=== PATIENT | female | born 1985 | race Caucasian/White ===

== ENCOUNTER 2018-02-26 10:12 | Emergency (ER) | payer OTHER ==
[2018-02-26 10:24] VITALS: RESP 18
--- NOTE | 2018-02-26 10:45 | ED ---
General Adult HPI - General Chief complaint: Recheck/Abnormal Lab/Rx Stated complaint: kidney problem Time Seen by Provider: 02/26/18 10:25 Source: patient, RN notes reviewed, old records reviewed Mode of arrival: ambulatory Limitations: no limitations - History of Present Illness Initial comments: 32-year-old female presented for evaluation of bilateral lower extremity and bilateral hand swelling. This has been progressive over the past 4 days. Patient is also noted decreased urination. She states she is urinating approximately once every 1-2 days. She states this is very dark in color. She does have history of kidney stones requiring stenting. She is currently not having any flank pain. No dysuria. No fever or chills. Patient does currently have a dental infection that is being evaluated by her dentist. No chest pain. No dyspnea. No fever or chills. - Related Data Home Medications Medication Instructions Recorded Confirmed Amoxicillin 500 mg PO Q8H 02/26/18 02/26/18 Ibuprofen [Motrin] 800 mg PO TID PRN 02/26/18 02/26/18 Allergies Allergy/AdvReac Type Severity Reaction Status Date / Time acetaminophen Allergy Anaphylaxis Verified 02/26/18 10:30 Review of Systems ROS Statement: Those systems with pertinent positive or pertinent negative responses have been documented in the HPI. ROS Other: All systems not noted in ROS Statement are negative. Past Medical History Additional Past Medical History / Comment(s): Kidney stones, right kidney failure History of Any Multi-Drug Resistant Organisms: None Reported Past Surgical History: Section, Orthopedic Surgery Past Psychological History: No Psychological Hx Reported Smoking Status: Never smoker Past Alcohol Use History: None Reported Past Drug Use History: None Reported General Exam Limitations: no limitations General appearance: alert, in no apparent distress Head exam: Present: atraumatic, normocephalic Eye exam: Present: normal appearance, PERRL ENT exam: Present: normal exam Neck exam: Present: normal inspection. Absent: tenderness, meningismus Respiratory exam: Present: normal lung sounds bilaterally. Absent: respiratory distress, wheezes, rales Cardiovascular Exam: Present: regular rate, normal rhythm GI/Abdominal exam: Present: soft. Absent: distended, tenderness Extremities exam: Present: pedal edema (2+ pitting edema) Neurological exam: Present: alert, oriented X3, CN II-XII intact. Absent: motor sensory deficit Psychiatric exam: Present: normal affect, normal mood Skin exam: Present: warm, dry, intact. Absent: cyanosis, diaphoretic Course Vital Signs 02/26/18 10:21 Temperature 98.4 F Pulse Rate 103 H Respiratory 18 Rate Blood Pressure 129/83 O2 Sat by Pulse 98 Oximetry Medical Decision Making - Medical Decision Making 32-year-old female presenting with generalized swelling and decreased urine output. On exam patient does have 1+ pitting edema in her bilateral lower extremities. Lungs are clear. Workup includes a chest x-ray shows clear lung graves, no edema, no cardiomegaly. Ultrasound of the kidneys does show a poorly differentiated cortical medullary junction consistent with medical renal disease. There is no hydro-, no nephrolithiasis. Urinalysis is clear, no protein, 2 RBCs however there is 15 squamous cells, consistent with contamination. Creatinine is normal at 0.85. CBC and CMP are otherwise unremarkable. Patient does have remote history of heroin abuse. She states she has been clean for approximately 4 years. She is instructed on maintaining oral hydration, healthy diet and healthy lifestyle. She will be given outpatient primary care physician as well as nephrology follow-up. - Lab Data Result diagrams: 02/26/18 10:48 02/26/18 10:48 Lab Results 02/26/18 02/26/18 02/26/18 Range/Units 10:48 10:48 10:48 WBC 7.3 (3.8-10.6) k/uL RBC 4.35 (3.80-5.40) m/uL Hgb 12.4 (11.4-16.0) gm/dL Hct 37.3 (34.0-46.0) % MCV 85.8 (80.0-100.0) fL MCH 28.6 (25.0-35.0) pg MCHC 33.3 (31.0-37.0) g/dL RDW 13.3 (11.5-15.5) % Plt Count 243 (150-450) k/uL Neutrophils % 59 % Lymphocytes % 24 % Monocytes % 8 % Eosinophils % 7 % Basophils % 1 % Neutrophils # 4.3 (1.3-7.7) k/uL Lymphocytes # 1.7 (1.0-4.8) k/uL Monocytes # 0.6 (0-1.0) k/uL Eosinophils # 0.5 (0-0.7) k/uL Basophils # 0.1 (0-0.2) k/uL Sodium 142 (137-145) mmol/L Potassium 4.1 (3.5-5.1) mmol/L Chloride 101 (98-107) mmol/L Carbon Dioxide 28 (22-30) mmol/L Anion Gap 13 mmol/L BUN 13 (7-17) mg/dL Creatinine 0.85 (0.52-1.04) mg/dL Est GFR (CKD-EPI)AfAm >90 (>60 ml/min/1.73 sqM) Est GFR (CKD-EPI)NonAf >90 (>60 ml/min/1.73 sqM) Glucose 98 (74-99) mg/dL Calcium 9.3 (8.4-10.2) mg/dL Total Bilirubin 0.2 (0.2-1.3) mg/dL AST 23 (14-36) U/L ALT 34 (9-52) U/L Alkaline Phosphatase 104 (38-126) U/L NT-Pro-B Natriuret Pep 43 pg/mL Total Protein 7.2 (6.3-8.2) g/dL Albumin 4.1 (3.5-5.0) g/dL Urine Color Urine Appearance (Clear) Urine pH (5.0-8.0) Ur Specific [place] (1.001-1.035) Urine Protein (Negative) Urine Glucose (UA) (Negative) Urine Ketones (Negative) Urine Blood (Negative) Urine Nitrite (Negative) Urine Bilirubin (Negative) Urine Urobilinogen (<2.0) mg/dL Ur Leukocyte Esterase (Negative) Urine RBC (0-5) /hpf Urine WBC (0-5) /hpf Ur Squamous Epith Cells (0-4) /hpf Urine Bacteria (None) /hpf Urine Mucus (None) /hpf Urine HCG, Qual (Not Detectd) 02/26/18 02/26/18 Range/Units 11:13 11:13 WBC (3.8-10.6) k/uL RBC (3.80-5.40) m/uL Hgb (11.4-16.0) gm/dL Hct (34.0-46.0) % MCV (80.0-100.0) fL MCH (25.0-35.0) pg MCHC (31.0-37.0) g/dL RDW (11.5-15.5) % Plt Count (150-450) k/uL Neutrophils % % Lymphocytes % % Monocytes % % Eosinophils % % Basophils % % Neutrophils # (1.3-7.7) k/uL Lymphocytes # (1.0-4.8) k/uL Monocytes # (0-1.0) k/uL Eosinophils # (0-0.7) k/uL Basophils # (0-0.2) k/uL Sodium (137-145) mmol/L Potassium (3.5-5.1) mmol/L Chloride (98-107) mmol/L Carbon Dioxide (22-30) mmol/L Anion Gap mmol/L BUN (7-17) mg/dL Creatinine (0.52-1.04) mg/dL Est GFR (CKD-EPI)AfAm (>60 ml/min/1.73 sqM) Est GFR (CKD-EPI)NonAf (>60 ml/min/1.73 sqM) Glucose (74-99) mg/dL Calcium (8.4-10.2) mg/dL Total Bilirubin (0.2-1.3) mg/dL AST (14-36) U/L ALT (9-52) U/L Alkaline Phosphatase (38-126) U/L NT-Pro-B Natriuret Pep pg/mL Total Protein (6.3-8.2) g/dL Albumin (3.5-5.0) g/dL Urine Color Yellow Urine Appearance Cloudy H (Clear) Urine pH 5.5 (5.0-8.0) Ur Specific [place] 1.022 (1.001-1.035) Urine Protein Negative (Negative) Urine Glucose (UA) Negative (Negative) Urine Ketones Negative (Negative) Urine Blood Negative (Negative) Urine Nitrite Negative (Negative) Urine Bilirubin Negative (Negative) Urine Urobilinogen 2.0 (<2.0) mg/dL Ur Leukocyte Esterase Trace H (Negative) Urine RBC 2 (0-5) /hpf Urine WBC 3 (0-5) /hpf Ur Squamous Epith Cells 15 H (0-4) /hpf Urine Bacteria Rare H (None) /hpf Urine Mucus Few H (None) /hpf Urine HCG, Qual Not Detected (Not Detectd) Disposition Clinical Impression: Edema, Kidney disease Disposition: HOME SELF-CARE Condition: Fair Instructions: Leg Edema (ED), Chronic Kidney Disease (ED) Is patient prescribed a controlled substance at d/c from ED?: No Referrals: None,Stated [Primary Care Provider] - 1-2 days Alfred Lopez MD [REFERRING] - 1-2 days Osiris Scherer MD [STAFF PHYSICIAN] - 1-2 days Time of Disposition: 12:36
[2018-02-26 11:02] LABS: Basophils # (A) 0.1 k/uL (0-0.2); Basophils % (A) 1 %; Eosinophils # (A) 0.5 k/uL (0-0.7); Eosinophils % (A) 7 %; HCT 37.3 % (34.0-46.0); HGB 12.4 gm/dL (11.4-16.0); Lymphocytes # (A) 1.7 k/uL (1.0-4.8); Lymphocytes % (A) 24 %; MCH 28.6 pg (25.0-35.0); MCHC 33.3 g/dL (31.0-37.0); MCV 85.8 fL (80.0-100.0); Mean Platelet Volume 7.5; Monocytes # (A) 0.6 k/uL (0-1.0); Monocytes % (A) 8 %; Neutrophils # (A) 4.3 k/uL (1.3-7.7); Neutrophils % (A) 59 %; Platelet Count 243 k/uL (150-450); RBC 4.35 m/uL (3.80-5.40); RDW 13.3 % (11.5-15.5); WBC 7.3 k/uL (3.8-10.6)
[2018-02-26 11:12] LABS: ALT 34 U/L (9-52); AST 23 U/L (14-36); Albumin 4.1 g/dL (3.5-5.0); Alkaline Phosphatase 104 U/L (38-126); Anion Gap 13 mmol/L; Blood Urea Nitrogen 13 mg/dL (7-17); Calcium 9.3 mg/dL (8.4-10.2); Carbon Dioxide 28 mmol/L (22-30); Chloride 101 mmol/L (98-107); Glucose 98 mg/dL (74-99); Potassium 4.1 mmol/L (3.5-5.1); Sodium 142 mmol/L (137-145); Total Bilirubin 0.2 mg/dL (0.2-1.3); Total Protein 7.2 g/dL (6.3-8.2)
[2018-02-26 11:27] LABS: Appearance,Urine Cloudy (Clear); Bacteria,Urine Rare /hpf; Bilirubin,Urine Negative (Negative); Blood,Urine Negative (Negative); Color,Urine Yellow; Glucose,Urine (UA) Negative (Negative); Ketones,Urine Negative (Negative); Leukocyte Esterase,Urine Trace (Negative); Mucus,Urine Few /hpf; Nitrite,Urine Negative (Negative); PH, Urine 5.5 (5.0-8.0); Protein,Urine Negative (Negative); RBC,Urine 2 /hpf (0-5); Specific Gravity,Urine 1.022 (1.001-1.035); Squamous Epithelial Cell,Urine 15 /hpf (0-4); WBC,Urine 3 /hpf (0-5)
--- NOTE | 2018-02-26 11:56 | US ---
EXAMINATION TYPE: US renals and bladder DATE OF EXAM: 02/26/2018 COMPARISON: NONE CLINICAL HISTORY: Pain. Had not urinated for about three days, h/o of right renal failure at 20. EXAM MEASUREMENTS: Right Kidney: 10.6 x 5.4 x 6.3 cm Left Kidney: 10.8 x 5.3 x 6.1 cm Right Kidney: No hydronephrosis or masses seen. No nephrolithiasis. Slight cortical renal thinning an d poor corticomedullary differentiation. Left Kidney: No hydronephrosis or masses seen . No nephrolithiasis. Slight cortical renal thinning an d poor corticomedullary differentiation. Bladder: slightly distended, patient just gave urine sample Bilateral Jets seen: no There is no evidence for hydronephrosis at this point in time. No nephrolithiasis is seen. No bernice s are identified. The urinary bladder is anechoic. IMPRESSION: Poor corticomedullary differentiation and mild cortical renal thinning suggesting underlying medical renal disease compatible the patient's history. No hydronephrosis or nephrolithiasis.
--- NOTE | 2018-02-26 11:57 | XR ---
EXAMINATION TYPE: XR chest 2V DATE OF EXAM: 02/26/2018 COMPARISON: NONE HISTORY: Lower extremity swelling. Shortness of breath. TECHNIQUE: Frontal and lateral views of the chest are obtained. FINDINGS: There is no focal air space opacity, pleural effusion, or pneumothorax seen. The cardiac silhouette size is within normal limits. The osseous structures are intact. IMPRESSION: No acute cardiopulmonary process.
[2018-02-26 12:51] VITALS: BP 108/57; PULSE 68; TEMP 98.2
== END 2018-02-26 12:50 | disposition home or self-care (01) ==
LOC: EC 10:12
DX: N28.9 Disorder of kidney and ureter, unspecified (principal); R60.0 Localized edema; R82.99 Other abnormal findings in urine; K04.7 Periapical abscess without sinus; R39.12 Poor urinary stream; Z88.5 Allergy status to narcotic agent
CPT/HCPCS: 36415; 71046; 76770; 80053; 81001; 81025; 83880; 85025; 99284

== ENCOUNTER → 2018-06-03 | Outpatient (CLI) | payer OTHER ==
[2018-06-03 13:36] LABS: Appearance,Urine Clear (Clear); Bilirubin,Urine Negative (Negative); Blood,Urine Small (Negative); Color,Urine Yellow; Glucose,Urine (UA) Negative (Negative); Ketones,Urine Negative (Negative); Leukocyte Esterase,Urine Trace (Negative); Mucus,Urine Rare /hpf; Nitrite,Urine Negative (Negative); PH, Urine 6.5 (5.0-8.0); Protein,Urine Negative (Negative); RBC,Urine <1 /hpf (0-5); Specific Gravity,Urine 1.013 (1.001-1.035); Squamous Epithelial Cell,Urine 3 /hpf (0-4); Urobilinogen,Urine <2.0 mg/dL (<2.0); WBC,Urine 2 /hpf (0-5)
[2018-06-03 13:45] LABS: Anion Gap 8 mmol/L; Blood Urea Nitrogen 11 mg/dL (7-17); Calcium 9.6 mg/dL (8.4-10.2); Carbon Dioxide 28 mmol/L (22-30); Chloride 104 mmol/L (98-107); Glucose 94 mg/dL (74-99); Potassium 4.7 mmol/L (3.5-5.1); Sodium 140 mmol/L (137-145)
== END | disposition home or self-care (01) ==
LOC: LABWHC1 12:08
PROVIDERS: ATTEND Internal Medicine
DX: N20.0 Calculus of kidney (principal)
CPT/HCPCS: 36415; 80048; 81001; 87086

== ENCOUNTER 2020-08-25 20:30 | Emergency (ER) | payer OTHER ==
[2020-08-25 20:37] VITALS: RESP 18
[2020-08-25] MEDS ORDERED: KETOROLAC 15 MG/ML 1 ML VIAL IVP STA (21:04)
[2020-08-25] MEDS ORDERED: SODIUM CHLORIDE 0.9% 1,000 ML IV STA (21:04)
--- NOTE | 2020-08-25 21:44 | ED ---
Female Urogenital HPI - General Source: patient Mode of arrival: ambulatory Limitations: no limitations - History of Present Illness Last Menstrual Period: 07/19/20 <Selma Beauchamp - Last Filed: 08/25/20 21:40> <Kamla Mcgee - Last Filed: 08/25/20 23:55> - General Chief complaint: Urogenital Stated complaint: Abd Pain Time Seen by Provider: 08/25/20 20:45 - History of Present Illness Initial comments: Patient is a 35-year-old female presenting to the emergency department with complaints of right-sided flank pain has been increasing over the past 4-5 days. Patient states there is some mild radiation into the right side of the abdomen and some also into the left side. Patient does have some occasional nausea. She states she has had kidney stones in the past and this feels similar. She denies any hematuria, dysuria. She denies any vomiting, diarrhea, chest pain or shortness of breath. She denies any fever or chills. She states she has seen Dr. Silveira in the past. Patient states she did try some Motrin earlier today without improvement in her symptoms. Patient has no further complaints at this time. Upon arrival to the ER, her vital signs are stable. (Selma Beauchamp) - Related Data Home Medications Medication Instructions Recorded Confirmed Dextroamphetamine/Amphetamine 20 mg PO BID PRN 08/25/20 08/25/20 [Adderall] Methadone HCl [Methadone Intensol] 150 mg PO DAILY 08/25/20 08/25/20 Allergies Allergy/AdvReac Type Severity Reaction Status Date / Time acetaminophen Allergy Anaphylaxis Verified 08/25/20 21:08 Review of Systems ROS Other: All systems not noted in ROS Statement are negative. <Selma Beauchamp - Last Filed: 08/25/20 21:40> ROS Other: All systems not noted in ROS Statement are negative. <Kamla Mcgee - Last Filed: 08/25/20 23:55> ROS Statement: Those systems with pertinent positive or pertinent negative responses have been documented in the HPI. Past Medical History Additional Past Medical History / Comment(s): Kidney stones, right kidney failure History of Any Multi-Drug Resistant Organisms: None Reported Past Surgical History: Section, Orthopedic Surgery Past Psychological History: No Psychological Hx Reported Smoking Status: Never smoker Past Alcohol Use History: None Reported Past Drug Use History: None Reported <Selma Beauchamp - Last Filed: 08/25/20 21:40> General Exam Limitations: no limitations <Selma Beauchamp - Last Filed: 08/25/20 21:40> - General Exam Comments Initial Comments: GENERAL: Patient is well-developed and well-nourished. Patient is nontoxic and in no acute distress. HEAD: Atraumatic, normocephalic. EYES: Pupils equal round and reactive to light, extraocular movements intact, sclera anicteric, conjunctiva are normal. Eyelids were unremarkable. ENT: TMs normal, nares patent, oropharynx clear without exudates. Moist mucous membranes. NECK: Normal range of motion, supple without lymphadenopathy or JVD. LUNGS: Unlabored respirations. Breath sounds clear to auscultation bilaterally and equal. No wheezes rales or rhonchi. HEART: Regular rate and rhythm without murmurs, rubs or gallops. ABDOMEN: Soft, nontender, normoactive bowel sounds. No guarding, no rebound. No masses appreciated. : Deferred MUSCULOSKELETAL: Normal extremities with adequate strength and normal range of motion, no pitting or edema. No clubbing or cyanosis. NEUROLOGICAL: Patient is alert and oriented x 3. Motor and sensory are also intact. Cranial nerves II through XII grossly intact. Symmetrical smile. Normal speech, normal gait. PSYCH: Normal mood, normal affect. SKIN: Warm, Dry, normal turgor, no rashes or lesions noted. (Selma Beauchamp) Course <Kamla Mcgee - Last Filed: 08/25/20 23:55> Vital Signs 08/25/20 08/25/20 20:33 23:32 Temperature 98.9 F 98 F Pulse Rate 66 62 Respiratory 18 18 Rate Blood Pressure 145/79 129/77 O2 Sat by Pulse 98 98 Oximetry - Reevaluation(s) Reevaluation #1: received patient as sign out pending CT ordered to r/o stone as cause of flank pain. 08/25/20 23:00 (Kamla Mcgee) Reevaluation #2: Pt presenting for 5 days of low back pain, no fevers, no nausea, vomiting. hx of stones. cr/bun WNL. patient does not appear in distress. pt has no overt signs of infection. no large stones concerning for cause of pain on CT abdomen/pelvis. pt states it coudl be stress from her daughter recently being diagnosed with cancer. pt denies chest pain, SOB, leg pain, back injury/trauma or falls. states pain better. at this time after examination i feel ptatient may have had recently passed stone vs low back strain. pt will be dischargd with instruction to take ibuprofen as needed for pain and return for worsening symptoms/fevers. Dr Lopez agreeable to care plan. 08/25/20 23:53 (Kamla Mcgee) Medical Decision Making - Lab Data Result diagrams: 08/25/20 21:16 08/25/20 21:16 <Kamla Mcgee - Last Filed: 08/25/20 23:55> - Lab Data Lab Results 08/25/20 08/25/20 08/25/20 Range/Units 21:16 21:16 21:20 WBC 8.0 (3.8-10.6) k/uL RBC 4.40 (3.80-5.40) m/uL Hgb 12.9 (11.4-16.0) gm/dL Hct 37.4 (34.0-46.0) % MCV 85.1 (80.0-100.0) fL MCH 29.3 (25.0-35.0) pg MCHC 34.4 (31.0-37.0) g/dL RDW 13.3 (11.5-15.5) % Plt Count 258 (150-450) k/uL MPV 8.0 Neutrophils % 64 % Lymphocytes % 22 % Monocytes % 7 % Eosinophils % 5 % Basophils % 1 % Neutrophils # 5.1 (1.3-7.7) k/uL Lymphocytes # 1.8 (1.0-4.8) k/uL Monocytes # 0.5 (0-1.0) k/uL Eosinophils # 0.4 (0-0.7) k/uL Basophils # 0.1 (0-0.2) k/uL Sodium 137 (137-145) mmol/L Potassium 4.3 (3.5-5.1) mmol/L Chloride 105 (98-107) mmol/L Carbon Dioxide 26 (22-30) mmol/L Anion Gap 6 mmol/L BUN 12 (7-17) mg/dL Creatinine 0.83 (0.52-1.04) mg/dL Est GFR (CKD-EPI)AfAm >90 (>60 ml/min/1.73 sqM) Est GFR (CKD-EPI)NonAf >90 (>60 ml/min/1.73 sqM) Glucose 96 (74-99) mg/dL Calcium 9.9 (8.4-10.2) mg/dL Total Bilirubin 0.3 (0.2-1.3) mg/dL AST 32 (14-36) U/L ALT 31 (4-34) U/L Alkaline Phosphatase 113 (38-126) U/L Total Protein 7.8 (6.3-8.2) g/dL Albumin 4.3 (3.5-5.0) g/dL Urine Color Urine Appearance (Clear) Urine pH (5.0-8.0) Ur Specific [place] (1.001-1.035) Urine Protein (Negative) Urine Glucose (UA) (Negative) Urine Ketones (Negative) Urine Blood (Negative) Urine Nitrite (Negative) Urine Bilirubin (Negative) Urine Urobilinogen (<2.0) mg/dL Ur Leukocyte Esterase (Negative) Urine RBC (0-5) /hpf Urine WBC (0-5) /hpf Ur Squamous Epith Cells (0-4) /hpf Urine Bacteria (None) /hpf Urine Mucus (None) /hpf Urine HCG, Qual Not Detected (Not Detectd) 08/25/20 Range/Units 21:21 WBC (3.8-10.6) k/uL RBC (3.80-5.40) m/uL Hgb (11.4-16.0) gm/dL Hct (34.0-46.0) % MCV (80.0-100.0) fL MCH (25.0-35.0) pg MCHC (31.0-37.0) g/dL RDW (11.5-15.5) % Plt Count (150-450) k/uL MPV Neutrophils % % Lymphocytes % % Monocytes % % Eosinophils % % Basophils % % Neutrophils # (1.3-7.7) k/uL Lymphocytes # (1.0-4.8) k/uL Monocytes # (0-1.0) k/uL Eosinophils # (0-0.7) k/uL Basophils # (0-0.2) k/uL Sodium (137-145) mmol/L Potassium (3.5-5.1) mmol/L Chloride (98-107) mmol/L Carbon Dioxide (22-30) mmol/L Anion Gap mmol/L BUN (7-17) mg/dL Creatinine (0.52-1.04) mg/dL Est GFR (CKD-EPI)AfAm (>60 ml/min/1.73 sqM) Est GFR (CKD-EPI)NonAf (>60 ml/min/1.73 sqM) Glucose (74-99) mg/dL Calcium (8.4-10.2) mg/dL Total Bilirubin (0.2-1.3) mg/dL AST (14-36) U/L ALT (4-34) U/L Alkaline Phosphatase (38-126) U/L Total Protein (6.3-8.2) g/dL Albumin (3.5-5.0) g/dL Urine Color Yellow Urine Appearance Cloudy H (Clear) Urine pH 6.0 (5.0-8.0) Ur Specific [place] 1.011 (1.001-1.035) Urine Protein Negative (Negative) Urine Glucose (UA) Negative (Negative) Urine Ketones Negative (Negative) Urine Blood Negative (Negative) Urine Nitrite Negative (Negative) Urine Bilirubin Negative (Negative) Urine Urobilinogen <2.0 (<2.0) mg/dL Ur Leukocyte Esterase Trace H (Negative) Urine RBC <1 (0-5) /hpf Urine WBC 3 (0-5) /hpf Ur Squamous Epith Cells 10 H (0-4) /hpf Urine Bacteria Many H (None) /hpf Urine Mucus Occasional H (None) /hpf Urine HCG, Qual (Not Detectd) Disposition <Selma Beauchamp L - Last Filed: 08/25/20 21:40> Is patient prescribed a controlled substance at d/c from ED?: No <Kamla Mcgee - Last Filed: 08/25/20 23:55> Clinical Impression: Flank pain Disposition: HOME SELF-CARE Condition: Good Instructions (If sedation given, give patient instructions): Abdominal Pain (ED) Additional Instructions: Please use medication as discussed. Please follow-up with family doctor in the next 2 days. Please return to emergency room if the symptoms increase or worsen or for any other concerns. Referrals: Santiago Sinclair, [Primary Care Provider] - 1-2 days
[2020-08-25 21:55] LABS: Basophils # (A) 0.1 k/uL (0-0.2); Basophils % (A) 1 %; Eosinophils # (A) 0.4 k/uL (0-0.7); Eosinophils % (A) 5 %; HCT 37.4 % (34.0-46.0); HGB 12.9 gm/dL (11.4-16.0); Lymphocytes # (A) 1.8 k/uL (1.0-4.8); Lymphocytes % (A) 22 %; MCH 29.3 pg (25.0-35.0); MCHC 34.4 g/dL (31.0-37.0); MCV 85.1 fL (80.0-100.0); Monocytes # (A) 0.5 k/uL (0-1.0); Monocytes % (A) 7 %; Neutrophils # (A) 5.1 k/uL (1.3-7.7); Neutrophils % (A) 64 %; Platelet Count 258 k/uL (150-450); RDW 13.3 % (11.5-15.5)
[2020-08-25 21:56] LABS: Appearance,Urine Cloudy (Clear); Bacteria,Urine Many /hpf; Bilirubin,Urine Negative (Negative); Blood,Urine Negative (Negative); Color,Urine Yellow; Glucose,Urine (UA) Negative (Negative); Ketones,Urine Negative (Negative); Leukocyte Esterase,Urine Trace (Negative); Mucus,Urine Occasional /hpf; Nitrite,Urine Negative (Negative); Protein,Urine Negative (Negative); RBC,Urine <1 /hpf (0-5); Specific Gravity,Urine 1.011 (1.001-1.035); Squamous Epithelial Cell,Urine 10 /hpf (0-4); Urobilinogen,Urine <2.0 mg/dL (<2.0); WBC,Urine 3 /hpf (0-5)
[2020-08-25 22:07] LABS: ALT 31 U/L (4-34); AST 32 U/L (14-36); African American GFR (CKD) >90 (>60 ml/min/1.73 sqM); Albumin 4.3 g/dL (3.5-5.0); Alkaline Phosphatase 113 U/L (38-126); Anion Gap 6 mmol/L; Blood Urea Nitrogen 12 mg/dL (7-17); Calcium 9.9 mg/dL (8.4-10.2); Carbon Dioxide 26 mmol/L (22-30); Chloride 105 mmol/L (98-107); Glucose 96 mg/dL (74-99); Non-African American GFR(CKD) >90 (>60 ml/min/1.73 sqM); Potassium 4.3 mmol/L (3.5-5.1); Sodium 137 mmol/L (137-145); Total Bilirubin 0.3 mg/dL (0.2-1.3); Total Protein 7.8 g/dL (6.3-8.2)
--- NOTE | 2020-08-25 23:12 | CT ---
EXAMINATION TYPE: CT abdomen pelvis wo con DATE OF EXAM: 08/25/2020 COMPARISON: None HISTORY: Right Flank Pain CT DLP: 1094.20 mGycm Automated exposure control for dose reduction was used. Images were obtained from the diaphragm to the floor the pelvis with no contrast. There is minimal reticular subpleural density at the posterior lung bases. Heart size is normal. Ther e is no pericardial effusion. Liver spleen stomach pancreas gallbladder appear normal. Bile ducts are not dilated. There is no adrenal mass. Kidneys have normal size and contour. There is no hydronephrosis. There is probably a 2 mm calculus upper pole right kidney. There is no retroperitoneal adenopathy. Ureters are not dilated. Bladder distends smoothly. There is no inguinal hernia. Uterus is anteverted. There is no free fluid in the pelvis. There is no sign of a pelvic mass. Lumbar vertebra have normal spacing a nd alignment. Posterior elements are intact. Bony pelvis is intact. Hip joints appear normal. Appendix not seen with certainty. There is no sign of thickened appendix. There is no mesenteric ramses a. There is no ascites or free air. There is no bowel obstruction IMPRESSION: Negative CT scan abdomen and pelvis. No renal obstruction. Small right renal calculus. No sign of keren endicitis.
[2020-08-25 23:33] VITALS: BP 129/77; PULSE 62; TEMP 98
== END 2020-08-25 23:32 | disposition home or self-care (01) ==
LOC: EC 20:30
DX: R10.9 Unspecified abdominal pain (principal); Z79.891 Long term (current) use of opiate analgesic; Z88.6 Allergy status to analgesic agent; Z87.442 Personal history of urinary calculi
CPT/HCPCS: 36415; 80053; 85025; 81001; 81025; 74176; 99284; 96374; 96361 ×2; J1885

== ENCOUNTER 2020-12-26 22:10 | Emergency (ER) | payer OTHER ==
[2020-12-26 22:17] VITALS: RESP 18
[2020-12-26] MEDS ORDERED: SODIUM CHLORIDE 0.9% 500 ML 500 ML IV STA (22:25)
--- NOTE | 2020-12-26 22:31 | ED ---
Seizure HPI - General Chief Complaint: Seizure Stated Complaint: Seizure Time Seen by Provider: 12/26/20 22:16 Source: patient, EMS Mode of arrival: EMS Limitations: no limitations - History of Present Illness Initial Comments: This patient is a 35-year-old woman brought to be evaluated after she had a seizure tonight as described by her . The patient reports that she has a seizure history, they started when she was 8 months old and have continued to present. She was taking medicine until about 6 years ago when she states that she didn't think that she was needing it anymore and had stopped it. She reports that she has had seizures intermittently since that time. She is not currently seeing a neurologist. Relation to tonight's episode, she does not recall the event. She believes she must have hit the right side of her head, she does have a little aching pain there. She states she also believes she bit the right side of her tongue. MD Complaint: seizure -: minutes(s) Description of Episode: loss of consciousness, tonic-clonic movement, post-event confusion -: minutes(s) Witnessed: yes - by bystander Trauma: Yes (head) Seizure History: known seizure disorder Place: home Possible Precipitating Event: none Associated Symptoms: denies other symptoms Treatments Prior to Arrival: none - Related Data Home Medications Medication Instructions Recorded Confirmed Dextroamphetamine/Amphetamine 20 mg PO BID PRN 08/25/20 12/26/20 [Adderall] Methadone HCl [Methadone Intensol] 125 mg PO DAILY 08/25/20 12/26/20 Previous Rx's Medication Instructions Recorded diazePAM [Diastat] 10 mg RECTAL ONCE PRN #1 kit 12/27/20 Allergies Allergy/AdvReac Type Severity Reaction Status Date / Time acetaminophen Allergy Anaphylaxis Verified 12/26/20 23:13 Review of Systems ROS Statement: Those systems with pertinent positive or pertinent negative responses have been documented in the HPI. ROS Other: All systems not noted in ROS Statement are negative. Constitutional: Denies: fever, chills, weakness Eyes: Denies: eye pain, vision change ENT: Denies: hearing loss, epistaxis Respiratory: Denies: cough, dyspnea Cardiovascular: Denies: chest pain, palpitations, syncope Gastrointestinal: Denies: abdominal pain, nausea, vomiting, diarrhea Genitourinary: Denies: dysuria, hematuria Musculoskeletal: Denies: back pain Skin: Denies: rash Neurological: Reports: headache. Denies: weakness, numbness, paresthesias, confusion Past Medical History Past Medical History: Seizure Disorder Additional Past Medical History / Comment(s): Kidney stones, right kidney failure History of Any Multi-Drug Resistant Organisms: None Reported Past Surgical History: Section, Orthopedic Surgery Past Psychological History: No Psychological Hx Reported Smoking Status: Never smoker Past Alcohol Use History: None Reported Past Drug Use History: None Reported General Exam Limitations: no limitations General appearance: alert, in no apparent distress Head exam: Present: normocephalic, other (Contusion right parietal area. Mild tenderness. No obvious deformity.) Eye exam: Present: normal appearance, PERRL, EOMI, scleral icterus. Absent: conjunctival injection, nystagmus ENT exam: Present: normal oropharynx, mucous membranes moist, other (The right side of the tongue has contusion consistent with bite) Neck exam: Present: normal inspection, full ROM. Absent: tenderness, meningismus Respiratory exam: Present: normal lung sounds bilaterally. Absent: respiratory distress, wheezes, rales, rhonchi, stridor, chest wall tenderness Cardiovascular Exam: Present: regular rate, normal rhythm, normal heart sounds. Absent: systolic murmur, diastolic murmur, rubs, gallop GI/Abdominal exam: Present: soft. Absent: distended, tenderness, guarding, rebound, rigid Extremities exam: Present: normal inspection, normal capillary refill. Absent: pedal edema, calf tenderness Back exam: Present: normal inspection. Absent: CVA tenderness (R), CVA tenderness (L), vertebral tenderness Neurological exam: Present: alert, oriented X3, CN II-XII intact. Absent: motor sensory deficit Skin exam: Present: warm, dry, intact, normal color. Absent: rash Course Vital Signs 12/26/20 12/26/20 12/26/20 22:14 22:59 23:45 Temperature 98.1 F 98.0 F Pulse Rate 97 86 Respiratory 18 18 18 Rate Blood Pressure 126/80 125/74 O2 Sat by Pulse 96 100 Oximetry Medical Decision Making - Lab Data Result diagrams: 12/26/20 22:42 12/26/20 22:42 Lab Results 12/26/20 12/26/20 12/26/20 Range/Units 22:42 22:42 23:35 WBC 9.2 (3.8-10.6) k/uL RBC 4.53 (3.80-5.40) m/uL Hgb 12.6 (11.4-16.0) gm/dL Hct 38.9 (34.0-46.0) % MCV 85.9 (80.0-100.0) fL MCH 27.7 (25.0-35.0) pg MCHC 32.3 (31.0-37.0) g/dL RDW 13.6 (11.5-15.5) % Plt Count 243 (150-450) k/uL MPV 8.0 Neutrophils % 69 % Lymphocytes % 20 % Monocytes % 5 % Eosinophils % 5 % Basophils % 1 % Neutrophils # 6.3 (1.3-7.7) k/uL Lymphocytes # 1.8 (1.0-4.8) k/uL Monocytes # 0.4 (0-1.0) k/uL Eosinophils # 0.4 (0-0.7) k/uL Basophils # 0.1 (0-0.2) k/uL Sodium 133 L (137-145) mmol/L Potassium 4.1 (3.5-5.1) mmol/L Chloride 98 (98-107) mmol/L Carbon Dioxide 29 (22-30) mmol/L Anion Gap 6 mmol/L BUN 15 (7-17) mg/dL Creatinine 0.97 (0.52-1.04) mg/dL Est GFR (CKD-EPI)AfAm 88 (>60 ml/min/1.73 sqM) Est GFR (CKD-EPI)NonAf 76 (>60 ml/min/1.73 sqM) Glucose 113 H (74-99) mg/dL Calcium 9.6 (8.4-10.2) mg/dL Total Bilirubin 0.4 (0.2-1.3) mg/dL AST 28 (14-36) U/L ALT 20 (4-34) U/L Alkaline Phosphatase 97 (38-126) U/L Total Protein 7.3 (6.3-8.2) g/dL Albumin 4.1 (3.5-5.0) g/dL Urine HCG, Qual (Not Detectd) Urine Opiates Screen Not Detected (NotDetected) Ur Oxycodone Screen Not Detected (NotDetected) Urine Methadone Screen Detected H (NotDetected) Ur Propoxyphene Screen Not Detected (NotDetected) Ur Barbiturates Screen Not Detected (NotDetected) U Tricyclic Antidepress Not Detected (NotDetected) Ur Phencyclidine Scrn Not Detected (NotDetected) Ur Amphetamines Screen Not Detected (NotDetected) U Methamphetamines Scrn Not Detected (NotDetected) U Benzodiazepines Scrn Not Detected (NotDetected) Urine Cocaine Screen Not Detected (NotDetected) U Marijuana (THC) Screen Not Detected (NotDetected) Serum Alcohol <10 mg/dL 12/26/20 Range/Units 23:35 WBC (3.8-10.6) k/uL RBC (3.80-5.40) m/uL Hgb (11.4-16.0) gm/dL Hct (34.0-46.0) % MCV (80.0-100.0) fL MCH (25.0-35.0) pg MCHC (31.0-37.0) g/dL RDW (11.5-15.5) % Plt Count (150-450) k/uL MPV Neutrophils % % Lymphocytes % % Monocytes % % Eosinophils % % Basophils % % Neutrophils # (1.3-7.7) k/uL Lymphocytes # (1.0-4.8) k/uL Monocytes # (0-1.0) k/uL Eosinophils # (0-0.7) k/uL Basophils # (0-0.2) k/uL Sodium (137-145) mmol/L Potassium (3.5-5.1) mmol/L Chloride (98-107) mmol/L Carbon Dioxide (22-30) mmol/L Anion Gap mmol/L BUN (7-17) mg/dL Creatinine (0.52-1.04) mg/dL Est GFR (CKD-EPI)AfAm (>60 ml/min/1.73 sqM) Est GFR (CKD-EPI)NonAf (>60 ml/min/1.73 sqM) Glucose (74-99) mg/dL Calcium (8.4-10.2) mg/dL Total Bilirubin (0.2-1.3) mg/dL AST (14-36) U/L ALT (4-34) U/L Alkaline Phosphatase (38-126) U/L Total Protein (6.3-8.2) g/dL Albumin (3.5-5.0) g/dL Urine HCG, Qual Not Detected (Not Detectd) Urine Opiates Screen (NotDetected) Ur Oxycodone Screen (NotDetected) Urine Methadone Screen (NotDetected) Ur Propoxyphene Screen (NotDetected) Ur Barbiturates Screen (NotDetected) U Tricyclic Antidepress (NotDetected) Ur Phencyclidine Scrn (NotDetected) Ur Amphetamines Screen (NotDetected) U Methamphetamines Scrn (NotDetected) U Benzodiazepines Scrn (NotDetected) Urine Cocaine Screen (NotDetected) U Marijuana (THC) Screen (NotDetected) Serum Alcohol mg/dL - EKG Data -: EKG Interpreted by Ne EKG shows normal: sinus rhythm, axis (Normal), intervals (AZ interval 158 ms, QRS duration 84 ms, these are normal. QTc 42 ms, prolonged), QRS complexes (Normal), ST-T waves (Normal) Rate: normal (Rate 97 bpm) Disposition Clinical Impression: Generalized seizure Condition: Good Instructions (If sedation given, give patient instructions): Recurrent Seizures in Adults (ED) Prescriptions: diazePAM [Diastat] 10 mg RECTAL ONCE PRN #1 kit PRN Reason: Seizures Is patient prescribed a controlled substance at d/c from ED?: No Referrals: Nonstaff,Physician [Primary Care Provider] - 1-2 days Sylvia Gandhi MD [REFERRING] - 1-2 days
[2020-12-26 22:53] LABS: Basophils # (A) 0.1 k/uL (0-0.2); Basophils % (A) 1 %; Eosinophils # (A) 0.4 k/uL (0-0.7); Eosinophils % (A) 5 %; HCT 38.9 % (34.0-46.0); HGB 12.6 gm/dL (11.4-16.0); Lymphocytes # (A) 1.8 k/uL (1.0-4.8); Lymphocytes % (A) 20 %; MCH 27.7 pg (25.0-35.0); MCHC 32.3 g/dL (31.0-37.0); MCV 85.9 fL (80.0-100.0); Monocytes # (A) 0.4 k/uL (0-1.0); Monocytes % (A) 5 %; Neutrophils # (A) 6.3 k/uL (1.3-7.7); Neutrophils % (A) 69 %; Platelet Count 243 k/uL (150-450); RBC 4.53 m/uL (3.80-5.40); RDW 13.6 % (11.5-15.5); WBC 9.2 k/uL (3.8-10.6)
[2020-12-26 22:57] LABS: ALT 20 U/L (4-34); AST 28 U/L (14-36); African American GFR (CKD) 88 (>60 ml/min/1.73 sqM); Albumin 4.1 g/dL (3.5-5.0); Alcohol <10 mg/dL; Alkaline Phosphatase 97 U/L (38-126); Anion Gap 6 mmol/L; Blood Urea Nitrogen 15 mg/dL (7-17); Calcium 9.6 mg/dL (8.4-10.2); Carbon Dioxide 29 mmol/L (22-30); Chloride 98 mmol/L (98-107); Glucose 113 mg/dL (74-99); Non-African American GFR(CKD) 76 (>60 ml/min/1.73 sqM); Sodium 133 mmol/L (137-145); Total Bilirubin 0.4 mg/dL (0.2-1.3); Total Protein 7.3 g/dL (6.3-8.2)
[2020-12-26 23:02] LABS: Potassium 4.1 mmol/L (3.5-5.1)
--- NOTE | 2020-12-26 23:36 | CT ---
EXAMINATION TYPE: CT brain wo con DATE OF EXAM: 12/26/2020 COMPARISON: None HISTORY: Seizure CT DLP: 1170.40 mGycm Automated exposure control for dose reduction was used. Images obtained of the brain without contrast. Ventricles and sulci appear normal. There is no mass effect nor midline shift. There is no sign of in tracranial hemorrhage. Calvarium is intact. There is no evidence of cerebral edema. Skull base is int act. There is normal aeration of the mastoid sinuses. IMPRESSION: Negative unenhanced head CT scan.
[2020-12-26] MEDS ORDERED: IBUPROFEN 600 MG TAB PO STA (23:54)
[2020-12-27 00:16] LABS: Amphetamine Screen,Urine Not Detected (NotDetected); Barbiturate Screen,Urine Not Detected (NotDetected); Benzodiazepines Screen,Urine Not Detected (NotDetected); Cocaine Screen,Urine Not Detected (NotDetected); Methadone Screen, Urine Detected (NotDetected); Opiate Screen,Urine Not Detected (NotDetected); Oxycodone Screen, Urine Not Detected (NotDetected); Phencyclidine Screen,Urine Not Detected (NotDetected); Tricyclic Antidepressant,Urine Not Detected (NotDetected); Urn Cannabinoid Scrn Not Detected (NotDetected)
[2020-12-27 02:06] VITALS: BP 127/70; PULSE 103; TEMP 98.1
== END 2020-12-27 01:40 | disposition home or self-care (01) ==
LOC: EC 22:10
DX: R56.9 Unspecified convulsions (principal)
CPT/HCPCS: 36415; 93005; 80053; 85025; 81025; 80306; 70450; 99285; 96360; G0480; 80320

== ENCOUNTER → 2021-02-01 | Outpatient (CLI) | payer OTHER ==
--- NOTE | 2021-02-01 10:37 | MR ---
MR brain without contrast HISTORY: G 40.909 Multiplanar multisequence imaging through the brain, correlation to CT brain 12/26/2020 There is no restricted diffusion. There is no hemorrhage or hydrocephalus. Cerebellopontine angles, c orpus callosum, pituitary, cervical medullary junction are normal. Brain signal is normal. There are normal vascular flow voids. Orbits show symmetric appearance. Mild mucosal disease present in ethmoid air cells. Choroidal fissure cysts are noted incidentally. Coronal image #10 through the region of t he hippocampus on T2 coronal seizure image data set shows asymmetry, increased signal on the left as compared to the right, questionable atrophy on the right, there is an enlarged temporal horn of the r ight lateral ventricle. IMPRESSION: There is an asymmetric appearance to the hippocampus, correlate for possible mesial tempo ral sclerosis. Mild sinus disease, otherwise normal MRI.
== END | disposition home or self-care (01) ==
LOC: RADMRIMAIN 08:59
PROVIDERS: ATTEND Psychiatry & Neurology Neurology
DX: G40.909 Epilepsy, unspecified, not intractable, without status epilepticus (principal); J32.9 Chronic sinusitis, unspecified
CPT/HCPCS: 70551

== ENCOUNTER 2024-04-10 17:44 | Observation (INO) | payer OTHER ==
[2024-04-10] MEDS: SODIUM CHLORIDE 0.9% 1,000 ML IV STA (18:43)
[2024-04-10] MEDS: ONDANSETRON 4 MG/2 ML VIAL IVP STA (18:45)
[2024-04-10 18:47] LABS: Basophils % (A) 1 %; Eosinophils # (A) 0.5 k/uL (0-0.7); Eosinophils % (A) 5 %; HCT 38.2 % (34.0-46.0); HGB 12.9 gm/dL (11.4-16.0); Lymphocytes # (A) 1.6 k/uL (1.0-4.8); Lymphocytes % (A) 18 %; MCH 29.1 pg (25.0-35.0); MCHC 33.7 g/dL (31.0-37.0); MCV 86.2 fL (80.0-100.0); Mean Platelet Volume 8.3; Monocytes # (A) 0.5 k/uL (0-1.0); Monocytes % (A) 6 %; Neutrophils # (A) 6.2 k/uL (1.3-7.7); Neutrophils % (A) 69 %; Platelet Count 252 k/uL (150-450); RBC 4.42 m/uL (3.80-5.40); RDW 13.6 % (11.5-15.5); WBC 8.9 k/uL (3.8-10.6)
[2024-04-10 18:48] LABS: Appearance,Urine Cloudy (Clear); Bacteria,Urine Rare /hpf; Bilirubin,Urine Negative (Negative); Blood,Urine Trace (Negative); Color,Urine Light Yellow; Glucose,Urine (UA) Negative (Negative); Ketones,Urine Negative (Negative); Leukocyte Esterase,Urine Moderate (Negative); Mucus,Urine Occasional /hpf; Nitrite,Urine Negative (Negative); PH, Urine 5.5 (5.0-8.0); Protein,Urine Negative (Negative); RBC,Urine 2 /hpf (0-5); Specific Gravity,Urine 1.016 (1.001-1.035); Squamous Epithelial Cell,Urine 2 /hpf (0-4); Urobilinogen,Urine <2.0 mg/dL (<2.0); WBC,Urine 13 /hpf (0-5)
[2024-04-10] MEDS: MORPHINE SULFATE 4 MG/ML SYRINGE IVP STA (18:48)
[2024-04-10 18:53] LABS: HCG,Qualitative Serum Not Detected
[2024-04-10] MEDS: KETOROLAC 15 MG/ML 1 ML VIAL IVP STA (18:55)
[2024-04-10 19:00] LABS: INR 0.9 (<1.2)
[2024-04-10 19:01] LABS: Partial Thromboplastin Time 23.3 sec (22.0-30.0); Prothrombin Time 10.4 sec (10.0-12.5)
--- NOTE | 2024-04-10 19:23 | ED ---
Dizziness HPI - General Chief Complaint: Nausea/Vomiting/Diarrhea Stated Complaint: Dizziness Time Seen by Provider: 04/10/24 17:48 Source: patient, RN notes reviewed Mode of arrival: EMS Limitations: no limitations - History of Present Illness Initial Comments: This is a 38-year-old female who presents to the emergency department for dizziness, confusion, chest pain, and abdominal pain. States that when she woke up this morning she was very dizzy. Afterward she started to become very confused and disoriented. Believes that she had a seizure, which typically causes those symptoms. States that she used to be treated for seizures when she was younger, but no longer takes medication or follows with neurology because they eventually became fairly infrequent. However, states that the seizures have started to become more frequent, occurring at least once a month. She did have a seizure yesterday and believes that she did likely have one this morning causing the confusion. She still feels somewhat confused and dizzy and started to develop chest pain. Denies any shortness of breath. She does have a blood clot in her right leg and is currently on Xarelto, but has been out of this for 3 days. Additionally, she has pain in the left lower quadrant with some nausea. Denies any urinary symptoms. MD Complaint: dizziness - Related Data Home Medications Medication Instructions Recorded Confirmed Dextroamphetamine/Amphetamine 20 mg PO BID PRN 08/25/20 12/26/20 [Adderall] Methadone HCl [Methadone Intensol] 125 mg PO DAILY 08/25/20 12/26/20 Previous Rx's Medication Instructions Recorded diazePAM [Diastat] 10 mg RECTAL ONCE PRN #1 kit 12/27/20 Allergies Allergy/AdvReac Type Severity Reaction Status Date / Time acetaminophen Allergy Anaphylaxis Verified 04/10/24 17:57 Review of Systems ROS Statement: Those systems with pertinent positive or pertinent negative responses have been documented in the HPI. ROS Other: All systems not noted in ROS Statement are negative. Past Medical History Past Medical History: Seizure Disorder Additional Past Medical History / Comment(s): Kidney stones, right kidney failure History of Any Multi-Drug Resistant Organisms: None Reported Past Surgical History: Section, Orthopedic Surgery Past Psychological History: No Psychological Hx Reported Smoking Status: Never smoker Past Alcohol Use History: None Reported Past Drug Use History: None Reported General Exam Limitations: no limitations General appearance: alert, in no apparent distress Head exam: Present: atraumatic, normocephalic, normal inspection Eye exam: Present: normal appearance, PERRL, EOMI. Absent: scleral icterus, conjunctival injection, periorbital swelling Respiratory exam: Present: normal lung sounds bilaterally. Absent: respiratory distress, wheezes, rales, rhonchi, stridor Cardiovascular Exam: Present: regular rate, normal rhythm, normal heart sounds. Absent: systolic murmur, diastolic murmur, rubs, gallop, clicks GI/Abdominal exam: Present: soft, tenderness (Left lower quadrant), normal bowel sounds. Absent: distended Neurological exam: Present: alert, oriented X3, CN II-XII intact Psychiatric exam: Present: normal affect, normal mood Skin exam: Present: warm, dry, intact, normal color. Absent: rash Course Vital Signs 04/10/24 04/10/24 04/10/24 17:48 20:35 21:00 Temperature 98.5 F Pulse Rate 73 86 85 Respiratory 18 16 17 Rate Blood Pressure 117/76 113/54 100/54 O2 Sat by Pulse 96 100 100 Oximetry Medical Decision Making - Medical Decision Making This is a 38-year-old female who presents to the emergency department for dizziness, confusion, and abdominal pain. Was pt. sent in by a medical professional or institution? @ -No Did you speak to anyone other than the patient for history? @ -No Did you review nursing and triage notes? @ -Yes, and I agree, it is accurate with regards to the patient's symptoms. Were old charts reviewed? @ -No Differential Diagnosis? @ -Differential Dizziness: Benign paroxysmal positional Vertigo, Menieres disease, otitis media, acoustic neuroma, vertebrobasilar insufficiency, cerebellar stroke, encephalitis, h ypovolemic, arrhythmia, coronary artery syndrome, anemia, this is not meant to be an all-inclusive list EKG interpreted by me (3pts min.)? @ -EKG interpreted by me demonstrating the following: Sinus rhythm. Ventricular rate 64 bpm, TX interval 164 ms, QRS duration 92 ms, QTc 455 ms. X-rays interpreted by me (1pt min.)? @ -Not obtained CT interpreted by me (1pt min.)? @ -CTA of the chest obtained. My interpretation identifies no evidence of a pulmonary embolus. CT scan of the abdomen and pelvis obtained. My interp retation identifies no evidence of bowel wall thickening or free air. U/S interpreted by me (1pt. min.)? @ -Not obtained What testing was considered but not performed? (CT, X-rays, U/S, labs)? Why? @ -None What meds were considered but not given? Why? @ -None Did you discuss the management of the patient with other professionals? @ -Yes, Dr. Welch, who accepts the patient for admission. Did you reconcile home meds? @ -No Was smoking cessation discussed for >3mins.? @ -No Was critical care preformed (if so, how long)? @ -No Were there social determinants of health that impacted care today? How? (Home lessness, low income, unemployed, alcoholism, drug addiction, transportation, low edu. Level, literacy, decrease access to med. care, [facility], rehab)? @ -No Was there de-escalation of care discussed even if they declined? (Discuss DNR or withdrawal of care, Hospice)? @ -No What co-morbidities impacted this encounter? (DM, HTN, Smoking, COPD, CAD, Ca ncer, CVA, Hep., AIDS, mental health diagnosis, sleep apnea, morbid obesity)? @ -Seizures Was patient admitted / discharged? @ -Admitted. Given patient's history of seizures, seizure precautions were initiated on arrival. Lab work fairly unremarkable. Urinalysis does have some elevation in white blood cells and urine was sent for culture. Given the known blood clot in the right lower extremity, CTA of the chest was obtained to evaluate for any signs of pulmonary embolus. This was negative for a pulmonary embolus and any other acute process. CT scan of the abdomen and pelvis obtained as well due to the abdominal pain. This also did not identify any cause for her symptoms. While the patient was in the emergency department she proceeded to have a grand mal seizure. 2mg of Ativan was administered. Given that the seizures are increasing in frequency and she is not currently being treated, nor has she been evaluated in many years for the seizures, patient was admitted to medicine for further evaluation. 1 g of Keppra administered initially and she was started on Keppra 500 mg twice daily. Consult placed for neurology. Serial troponins ordered as well due to patient's initial complaint of chest pain. Case discussed with ED attending Dr. Wallace. Undiagnosed new problem with uncertain prognosis? @ -None Drug Therapy requiring intensive monitoring for toxicity (Heparin, Nitro, Insulin, Cardizem)? @ -None Were any procedures done? @ -None Diagnosis/symptom? @ -Recurrent seizures Acute, or Chronic, or Acute on Chronic? @ -Chronic Uncomplicated (without systemic symptoms) or Complicated (systemic symptoms)? @ -Complicated Side effects of treatment? @ -None Exacerbation, Progression, or Severe Exacerbation] @ -Progression Poses a threat to life or bodily function? @ -Yes, this can become life-threatening if they continue to become more frequent and are not treated. - Lab Data Result diagrams: 04/10/24 18:24 04/10/24 19:25 Lab Results 04/10/24 04/10/24 04/10/24 Range/Units 18:24 18:24 18:24 WBC 8.9 (3.8-10.6) k/uL RBC 4.42 (3.80-5.40) m/uL Hgb 12.9 (11.4-16.0) gm/dL Hct 38.2 (34.0-46.0) % MCV 86.2 (80.0-100.0) fL MCH 29.1 (25.0-35.0) pg MCHC 33.7 (31.0-37.0) g/dL RDW 13.6 (11.5-15.5) % Plt Count 252 (150-450) k/uL MPV 8.3 Neutrophils % 69 % Lymphocytes % 18 % Monocytes % 6 % Eosinophils % 5 % Basophils % 1 % Neutrophils # 6.2 (1.3-7.7) k/uL Lymphocytes # 1.6 (1.0-4.8) k/uL Monocytes # 0.5 (0-1.0) k/uL Eosinophils # 0.5 (0-0.7) k/uL Basophils # 0.0 (0-0.2) k/uL PT 10.4 (10.0-12.5) sec INR 0.9 (<1.2) APTT 23.3 (22.0-30.0) sec Sodium Potassium Chloride Carbon Dioxide Anion Gap BUN Creatinine Est GFR (CKD-EPI) Est GFR (CKD-EPI)AfAm Est GFR (CKD-EPI)NonAf Glucose Plasma Lactic Acid Wong (0.7-2.0) mmol/L Calcium Magnesium (1.6-2.3) mg/dL Total Bilirubin AST ALT Alkaline Phosphatase Troponin I (0.000-0.034) ng/mL Total Protein Albumin HCG, Qual Urine Color Light Yellow Urine Appearance Cloudy H (Clear) Urine pH 5.5 (5.0-8.0) Ur Specific [place] 1.016 (1.001-1.035) Urine Protein Negative (Negative) Urine Glucose (UA) Negative (Negative) Urine Ketones Negative (Negative) Urine Blood Trace H (Negative) Urine Nitrite Negative (Negative) Urine Bilirubin Negative (Negative) Urine Urobilinogen <2.0 (<2.0) mg/dL Ur Leukocyte Esterase Moderate H (Negative) Urine RBC 2 (0-5) /hpf Urine WBC 13 H (0-5) /hpf Ur Squamous Epith Cells 2 (0-4) /hpf Urine Bacteria Rare H (None) /hpf Urine Mucus Occasional H (None) /hpf Urine HCG, Qual (Not Detectd) 04/10/24 04/10/24 04/10/24 Range/Units 18:24 18:24 18:24 WBC (3.8-10.6) k/uL RBC (3.80-5.40) m/uL Hgb (11.4-16.0) gm/dL Hct (34.0-46.0) % MCV (80.0-100.0) fL MCH (25.0-35.0) pg MCHC (31.0-37.0) g/dL RDW (11.5-15.5) % Plt Count (150-450) k/uL MPV Neutrophils % % Lymphocytes % % Monocytes % % Eosinophils % % Basophils % % Neutrophils # (1.3-7.7) k/uL Lymphocytes # (1.0-4.8) k/uL Monocytes # (0-1.0) k/uL Eosinophils # (0-0.7) k/uL Basophils # (0-0.2) k/uL PT (10.0-12.5) sec INR (<1.2) APTT (22.0-30.0) sec Sodium Cancelled Potassium Cancelled Chloride Cancelled Carbon Dioxide Cancelled Anion Gap Cancelled BUN Cancelled Creatinine Cancelled Est GFR (CKD-EPI) Cancelled Est GFR (CKD-EPI)AfAm Cancelled Est GFR (CKD-EPI)NonAf Cancelled Glucose Cancelled Plasma Lactic Acid Wong 1.1 (0.7-2.0) mmol/L Calcium Cancelled Magnesium 2.0 (1.6-2.3) mg/dL Total Bilirubin Cancelled AST Cancelled ALT Cancelled Alkaline Phosphatase Cancelled Troponin I (0.000-0.034) ng/mL Total Protein Cancelled Albumin Cancelled HCG, Qual Not Detected Urine Color Urine Appearance (Clear) Urine pH (5.0-8.0) Ur Specific [place] (1.001-1.035) Urine Protein (Negative) Urine Glucose (UA) (Negative) Urine Ketones (Negative) Urine Blood (Negative) Urine Nitrite (Negative) Urine Bilirubin (Negative) Urine Urobilinogen (<2.0) mg/dL Ur Leukocyte Esterase (Negative) Urine RBC (0-5) /hpf Urine WBC (0-5) /hpf Ur Squamous Epith Cells (0-4) /hpf Urine Bacteria (None) /hpf Urine Mucus (None) /hpf Urine HCG, Qual Not Detected (Not Detectd) 04/10/24 04/10/24 Range/Units 18:24 19:25 WBC (3.8-10.6) k/uL RBC (3.80-5.40) m/uL Hgb (11.4-16.0) gm/dL Hct (34.0-46.0) % MCV (80.0-100.0) fL MCH (25.0-35.0) pg MCHC (31.0-37.0) g/dL RDW (11.5-15.5) % Plt Count (150-450) k/uL MPV Neutrophils % % Lymphocytes % % Monocytes % % Eosinophils % % Basophils % % Neutrophils # (1.3-7.7) k/uL Lymphocytes # (1.0-4.8) k/uL Monocytes # (0-1.0) k/uL Eosinophils # (0-0.7) k/uL Basophils # (0-0.2) k/uL PT (10.0-12.5) sec INR (<1.2) APTT (22.0-30.0) sec Sodium 135 L Potassium 4.7 Chloride 105 Carbon Dioxide 24 Anion Gap 6 BUN 13 Creatinine 0.60 Est GFR (CKD-EPI) Est GFR (CKD-EPI)AfAm >90 Est GFR (CKD-EPI)NonAf >90 Glucose 81 Plasma Lactic Acid Wong (0.7-2.0) mmol/L Calcium 8.9 Magnesium (1.6-2.3) mg/dL Total Bilirubin 0.8 AST 38 H ALT 26 Alkaline Phosphatase 89 Troponin I 0.016 (0.000-0.034) ng/mL Total Protein 7.2 Albumin 4.0 HCG, Qual Urine Color Urine Appearance (Clear) Urine pH (5.0-8.0) Ur Specific [place] (1.001-1.035) Urine Protein (Negative) Urine Glucose (UA) (Negative) Urine Ketones (Negative) Urine Blood (Negative) Urine Nitrite (Negative) Urine Bilirubin (Negative) Urine Urobilinogen (<2.0) mg/dL Ur Leukocyte Esterase (Negative) Urine RBC (0-5) /hpf Urine WBC (0-5) /hpf Ur Squamous Epith Cells (0-4) /hpf Urine Bacteria (None) /hpf Urine Mucus (None) /hpf Urine HCG, Qual (Not Detectd) - Radiology Data Radiology results: report reviewed, image reviewed Disposition Clinical Impression: Recurrent seizures Disposition: ADMITTED IP TO THIS [facility] Referrals: Nonstaff,Physician [Primary Care Provider] - 1-2 days
[2024-04-10 19:51] LABS: ALT 26 U/L (4-34); AST 38 U/L (14-36); African American GFR (CKD) >90 (>60 ml/min/1.73 sqM); Alkaline Phosphatase 89 U/L (38-126); Anion Gap 6 mmol/L; Blood Urea Nitrogen 13 mg/dL (7-17); Calcium 8.9 mg/dL (8.4-10.2); Carbon Dioxide 24 mmol/L (22-30); Chloride 105 mmol/L (98-107); Glucose 81 mg/dL (74-99); Non-African American GFR(CKD) >90 (>60 ml/min/1.73 sqM); Sodium 135 mmol/L (137-145); Total Bilirubin 0.8 mg/dL (0.2-1.3); Total Protein 7.2 g/dL (6.3-8.2)
[2024-04-10 19:58] LABS: Potassium 4.7 mmol/L (3.5-5.1)
[2024-04-10] MEDS: LORazepam 2 MG/ML INJ IV STA (20:45)
--- NOTE | 2024-04-10 22:04 | CT ---
EXAMINATION TYPE: CT chest angio for PE CT DLP: 507.6 mGycm, Automated exposure control for dose reduction was used. DATE OF EXAM: 04/10/2024 8:24 PM COMPARISON: CLINICAL INDICATION:Female, 38 years old with history of Chest pain, CATARINO, known DVT in right leg; nancy st pain, known DVT TECHNIQUE/CONTRAST: CTA scan of the thorax is performed with IV Contrast, patient injected with 100 ml mL of Isovue 370, MIP images are created and reviewed these are created on a separate workstation.. FINDINGS: There is adequate contrast bolus and timing. PULMONARY ARTERIES: There is no evidence for a filling defect within the pulmonary vasculature to sug gest acute pulmonary embolism. Pulmonary trunk is normal in size. Trunk measures 2.6 CM. AORTA: Unremarkable. Ascending aorta is 2.8 CM, descending is 2 CM. No significant atherosclerotic d isease. HEART: Heart size upper normal. No appreciable coronary artery calcifications. Trace pericardial flu id. LOWER NECK: No significant findings. Grossly unremarkable thyroid. MEDIASTINUM: No enlarged nodes by CT size criteria. SOFT TISSUES/AXILLA: Unremarkable soft tissues. No axillary adenopathy. LUNGS/ PLEURA: The lung parenchyma appears unremarkable for acute process. Mild dependent opacities i n the bilateral lower lobes most suggestive of atelectasis. AIRWAY: Central airways are patent. MUSCULOSKELETAL: No acute osseous abnormality. Mild disc degeneration changes are present throughout the included thoracolumbar spine. UPPER ABDOMEN: No significant findings. IMPRESSION: 1. No evidence of pulmonary embolism. 2. No other acute chest process demonstrated.
--- NOTE | 2024-04-10 22:10 | CT ---
EXAMINATION TYPE: CT abdomen pelvis w con CT DLP: 1661.5 mGycm, Automated exposure control for dose reduction was used. DATE OF EXAM: 04/10/2024 8:24 PM COMPARISON: None. CLINICAL INDICATION:Female, 38 years old with history of LLQ pain; abdominal pain TECHNIQUE: Axial CT of the abdomen and pelvis. Sagittal and coronal reformats were created on a [employer] [place] workstation. Contrast used:100 ml mL of Isovue 370 with IV Contrast, (none if empty) Oral contrast used: without Oral Contrast (none if empty) FINDINGS: LOWER CHEST: Mild bibasilar subsegmental atelectasis. ABDOMEN LIVER: Unremarkable GALLBLADDER AND BILE DUCTS: Unremarkable gallbladder. No biliary ductal dilatation. PANCREAS: There appears to be mild fatty infiltration of the head and uncinate process. No inflammato ry changes are evident. SPLEEN: Unremarkable. ADRENAL GLANDS: Unremarkable. KIDNEYS AND URETERS: Kidneys enhance symmetrically. No evidence of hydronephrosis or visible renal ca lculus. The ureters are unremarkable. PELVIS BLADDER: Unremarkable REPRODUCTIVE: Unremarkable. ABDOMEN & PELVIS STOMACH AND BOWEL: Stomach and small bowel are nondistended, no evidence of obstruction. What seems to be appendix appears unremarkable and there is no inflammatory process in the right lower quadrant . There is some stool and gas seen throughout the colon with no focal acute abnormality shown. Radio densities in the stomach likely medication. PERITONEUM/RETROPERITONEUM: No evidence of pneumoperitoneum or free fluid. VASCULATURE: Portal veins are enhancing. Splenic vein is patent. Unremarkable mesenteric veins. LYMPH NODES: No enlarged nodes by CT size criteria. SOFT TISSUE/ABDOMINAL WALL: No acute finding. There is laxity along the anterior abdominal wall betwe en the abdominal rectus muscles, with small superimposed fat-containing inguinal hernia. MUSCULOSKELETAL: No acute osseous abnormalities. IMPRESSION: No acute abnormality in the abdomen or pelvis.
[2024-04-10] MEDS ORDERED: NALOXONE 0.4 MG/ML 1 ML VIAL IV PRN (22:24)
[2024-04-10] MEDS ORDERED: ONDANSETRON 4 MG/2 ML VIAL IVP PRN (22:24)
[2024-04-10] MEDS ORDERED: KETOROLAC 15 MG/ML 1 ML VIAL IVP PRN (22:24)
[2024-04-10] MEDS ORDERED: MORPHINE SULFATE 4 MG/ML SYRINGE IV PRN (22:24)
[2024-04-10] MEDS ORDERED: LORazepam 2 MG/ML INJ IV PRN (22:25)
[2024-04-10] MEDS: HYDROmorphone 1 MG/ML 1 ML SYRINGE IVP STA (22:58)
[2024-04-10] MEDS: SODIUM CHLORIDE 0.9% 1,000 ML IV SCH (22:59)
[2024-04-10] MEDS: levETIRAcetam IV 500 MG/5 ML VIAL IVP STA (22:59)
[2024-04-10] MEDS: FLUCONAZOLE 150 MG TAB PO STA (23:00)
[2024-04-11] MEDS: PANTOPRAZOLE 40 MG/10 ML VIAL IV SCH (08:38)
[2024-04-11] MEDS: IBUPROFEN 400 MG TAB PO PRN (08:38)
[2024-04-11] MEDS: levETIRAcetam 500 MG TAB PO SCH (08:39)
[2024-04-11] MEDS ORDERED: LORazepam 2 MG/ML INJ IV PRN (10:39)
--- NOTE | 2024-04-11 10:40 | P.CNNES ---
History of Present Illness Consult date: 04/11/24 Requesting physician: Trinh Tomas Reason for Consult: recurrent seizure, takes nomedication History of Present Illness: Is a 38-year-old woman with history of seizure and is not on any antiepileptic drugs since to the ED department on 04/10/2024 for breakthrough seizure. According to the patient yesterday she woke up at 6:00 and she was doing well then within 1520 minutes she felt very tired and could not stand so she went to bed and after couple hours she noticed she was very confused she had blood around her mouth she bit her tongue and according to her notified her that she made weird noise and she tenses up. She thinks she probably had 2 episodes like this. she denies any urinary or bowel incontinence. States that she had seizures since the age of 8 months old and that she was on seizure med ication but does not recall the name and she was following up with a neurologist and her medication was stopped since her seizures were controlled. She thinks possibly she was on Depakote but not exactly sure. She does not recall the name of the neurologist. She stated that her mother was managing all her medical issues until she a few years ago. Currently she feels she is doing well. 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 Review of Systems The positive and negative as per HPI. Past Medical History Past Medical History: Deep Vein Thrombosis (DVT), Seizure Disorder Additional Past Medical History / Comment(s): Kidney stones, right kidney failure History of Any Multi-Drug Resistant Organisms: None Reported Past Surgical History: Section, Orthopedic Surgery Past Psychological History: No Psychological Hx Reported Smoking Status: Never smoker Past Alcohol Use History: None Reported Past Drug Use History: None Reported Medications and Allergies Home Medications Medication Instructions Recorded Confirmed Type Dextroamphetamine/Amphetamine 20 mg PO BID PRN 08/25/20 12/26/20 History [Adderall] Methadone HCl [Methadone Intensol] 125 mg PO DAILY 08/25/20 12/26/20 History diazePAM [Diastat] 10 mg RECTAL ONCE PRN #1 kit 12/27/20 Rx Allergies Allergy/AdvReac Type Severity Reaction Status Date / Time acetaminophen Allergy Anaphylaxis Verified 04/10/24 17:57 Physical Examination - Vital Signs Vital Signs: Vital Signs Temp Pulse Pulse Resp BP BP Pulse Ox 04/11/24 06:55 97.3 F L 65 16 93/61 95 04/11/24 02:34 64 16 114/80 96 04/11/24 02:00 67 17 113/83 95 04/11/24 00:00 65 20 112/68 98 04/10/24 23:00 64 16 100/52 98 04/10/24 22:00 66 20 102/50 95 04/10/24 21:00 85 17 100/54 100 04/10/24 20:35 86 16 113/54 100 04/10/24 17:48 98.5 F 73 18 117/76 96 Intake and Output 04/10/24 04/11/24 04/11/24 22:59 06:59 14:59 Other: Weight 97.522 kg 97.522 kg GENERAL: The patient is an obese woman, lying in bed and is not in acute dis tress. NEUROLOGICAL: Higher mental function: The patient is awake, alert, oriented to self, place and time. Patient is following commands. No aphasia and no neglect. Cranial nerves: The pupils are round, equal and reactive to light and accommodation. Visual graves are full to confrontation throughout. Extraocular movement is intact no nystagmus is noted. Facial sensation is normal to touch throughout. The facial strength is normal throughout. Hearing is normal bilaterally to hand rub. Tongue is midline and moved [id number] without any difficulty. No dysarthria is noted. Shoulder shrug is normal bilaterally. Motor: The strength is 5 over 5 throughout. Normal tone and bulk. Cerebellum: Normal finger to nose heel to chin bilaterally. Sensation: Sensation is normal to touch throughout. Reflexes (right/left): 2+ throughout. Plantars are downgoing bilaterally. Results - Laboratory Findings CBC and BMP: 04/10/24 18:24 04/10/24 19:25 Abnormal Lab Findings: Abnormal Labs 04/10/24 04/10/24 18:24 19:25 Sodium 135 L AST 38 H Urine Appearance Cloudy H Urine Blood Trace H Ur Leukocyte Esterase Moderate H Urine WBC 13 H Urine Bacteria Rare H Urine Mucus Occasional H Assessment and Plan Assessment: This is a 38-year-old woman with history of seizure since 8-month-old and is not on any antiepileptic drugs since she stated that her seizures were controlled presents emergency department because of possible 1-2 seizures yesterday. In which she stated that she woke up was home but then she had generalized weakness and felt she was could not stand up then she went to sleep and woke up with blood around her mouth bit her tongue and was confused. Breakthrough seizure since patient is not on any antiepileptic drugs History of seizure since age 8-month-old and patient had MRI of the brain in January 2021 which is reported as asymmetric appearance to the hippocampus, correlate for possible mesial temporal sclerosis. Plan: Patient was given 2 mg of Ativan by the ED team then was given Keppra 1 g then was started on Keppra 500 mg twice daily. I agree with starting Keppra 500 mg twice daily and notified the patient of the side effects of mood and irritability with Keppra. I ordered a routine EEG which will be completed tomorrow Seizure precautions seizure pads Ordered CT of the head. Patient is on Ativan 2 mg every 4 hours as needed for seizure and I change it to 1 mg. Notified the patient per the [place] DMV because of the seizure, to avoid driving for 6 months until seizure free from her last seizure episode, avoid heights, avoid swimming unassisted and avoid using heavy machinery Notify the patient that she needs to follow-up with a neurologist as an out patient for her seizure and recommend following up with somebody within 1 to 2 weeks Will defer the rest of the medical management to primary team. Thank you for the consultation. Dr. Zhu will resume neurology service tomorrow A.M. Time with Patient: Greater than 30
--- NOTE | 2024-04-11 13:26 | P.HPIM ---
History of Present Illness Patient is a 38-year-old female came in with complaints of seizure breakthrough. Patient had history of seizures. And the patient was seizure-free for long time because of which had antiepileptic medications were discontinued few months ago. Patient did lose consciousness and states that she does not recall what happened for a long time she denies any urinary or bowel or bladder incontinence tongue biting. CT of the head was obtained results are still pending patient had a CT of the abdomen and CT angio of the chest because she was complaining of chest pain and abdominal pain both of which resolved and these imaging is essentially within normal limits. 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 REVIEW OF SYSTEMS: All other systems are negative except those mentioned in the HPI PHYSICAL EXAMINATION: GENERAL: The patient is alert and oriented x3, not in any acute distress. Well developed, well nourished. HEENT: Pupils are round and equally reacting to light. EOMI. No scleral icterus. No conjunctival pallor. Normocephalic, atraumatic. No pharyngeal erythema. No thyromegaly. CARDIOVASCULAR: S1 and S2 present. No murmurs, rubs, or gallops. PULMONARY: Chest is clear to auscultation, no wheezing or crackles. ABDOMEN: Soft, nontender, nondistended, normoactive bowel sounds. No palpable organomegaly. MUSCULOSKELETAL: No joint swelling or deformity. EXTREMITIES: No cyanosis, clubbing, or pedal edema. NEUROLOGICAL: Gross neurological examination did not reveal any focal deficits. SKIN: No rashes. Assessment and plan -Breakthrough seizures: Awaiting CT results patient will undergo EEG patient was started on Keppra monitor overnight -History of chronic hep C will need to follow-up with gastroenterology as an outpatient. -History of DVT in the past for which patient is on Xarelto which will be resumed DVT prophylaxis: On Xarelto Past Medical History Past Medical History: Deep Vein Thrombosis (DVT), Seizure Disorder Additional Past Medical History / Comment(s): Kidney stones, right kidney failure History of Any Multi-Drug Resistant Organisms: None Reported Past Surgical History: Section, Orthopedic Surgery Past Psychological History: No Psychological Hx Reported Smoking Status: Never smoker Past Alcohol Use History: None Reported Past Drug Use History: None Reported Medications and Allergies Home Medications Medication Instructions Recorded Confirmed Type Dextroamphetamine/Amphetamine 30 mg PO BID 04/11/24 04/11/24 History [Adderall] Ibuprofen [Motrin] 600 mg PO Q12H PRN 04/11/24 04/11/24 History Ketoconazole 2% Cream [Nizoral 2%] 1 applic TOPICAL DAILY PRN 04/11/24 04/11/24 History Ketoconazole 2% Shampoo [Nizoral] 1 applic TOPICAL DAILY PRN 04/11/24 04/11/24 History Ondansetron Odt [Zofran Odt] 4 mg PO Q8HR PRN 04/11/24 04/11/24 History Rivaroxaban [Xarelto] 20 mg PO DAILY 04/11/24 04/11/24 History Triamcinolone 0.1% Cream [Kenalog 1 applicatio TOPICAL TID PRN 04/11/24 04/11/24 History 0.1% Cream] Allergies Allergy/AdvReac Type Severity Reaction Status Date / Time acetaminophen Allergy Anaphylaxis Verified 04/10/24 17:57 Physical Exam Vitals: Vital Signs Temp Pulse Pulse Resp BP BP Pulse Ox 04/11/24 06:55 97.3 F L 65 16 93/61 95 04/11/24 02:34 64 16 114/80 96 04/11/24 02:00 67 17 113/83 95 04/11/24 00:00 65 20 112/68 98 04/10/24 23:00 64 16 100/52 98 04/10/24 22:00 66 20 102/50 95 04/10/24 21:00 85 17 100/54 100 04/10/24 20:35 86 16 113/54 100 04/10/24 17:48 98.5 F 73 18 117/76 96 Intake and Output 04/10/24 04/11/24 04/11/24 22:59 06:59 14:59 Other: Weight 97.522 kg 97.522 kg Results CBC & Chem 7: 04/10/24 18:24 04/10/24 19:25 Labs: Abnormal Lab Results - Last 24 Hours (Table) 04/10/24 04/10/24 Range/Units 18:24 19:25 Sodium 135 L (137-145) mmol/L AST 38 H (14-36) U/L Urine Appearance Cloudy H (Clear) Urine Blood Trace H (Negative) Ur Leukocyte Esterase Moderate H (Negative) Urine WBC 13 H (0-5) /hpf Urine Bacteria Rare H (None) /hpf Urine Mucus Occasional H (None) /hpf Thrombosis Risk Factor Assmnt - Choose All That Apply Any of the Below Risk Factors Present?: Yes Each Factor Represents 1 point: Obesity (BMI >25), Oral contraceptives or ho rmone replacement therapy, Swollen legs (current) Other Risk Factors: No Other congenital or acquired thrombophilia - If yes, enter type in comment: No Thrombosis Risk Factor Assessment Total Risk Factor Score: 3 Thrombosis Risk Factor Assessment Level: Moderate Risk
--- NOTE | 2024-04-11 13:31 | CT ---
EXAMINATION TYPE: CT brain wo con CT DLP: 1095.6 mGycm, Automated exposure control for dose reduction was used. DATE OF EXAM: 04/11/2024 1:18 PM COMPARISON: 12/26/2020. CLINICAL INDICATION:Female, 38 years old with history of seizure, Seizure TECHNIQUE: Brain: Axial CT images of the brain were obtained with coronal and sagittal reformats created and rev iewed. Contrast used: None. Oral contrast used: None. FINDINGS: Brain: Extra-axial spaces: No abnormal extra-axial fluid collections. Ventricular system: Within normal limits Cerebral parenchyma: No acute intraparenchymal hemorrhage or mass effect. The gomez-white junction is well differentiated. Cerebellum: Unremarkable. Mass effect: No evidence of midline shift. Intracranial vasculature: unremarkable Soft tissues: Normal. Calvarium/osseous structures: No depressed skull fracture. Paranasal sinuses and mastoid air cells: Mild scattered paranasal sinus disease. Visualized orbits: Orbital contents are intact. IMPRESSION: No acute intracranial process.
[2024-04-11 14:33] VITALS: RESP 17
[2024-04-11] MEDS: RIVAROXABAN 20 MG TAB PO SCH (16:04)
[2024-04-11 16:46] LABS: Amphetamine Screen,Urine Not Detected (NotDetected); Benzodiazepines Screen,Urine Detected (NotDetected); Cocaine Screen,Urine Not Detected (NotDetected); Methadone Screen, Urine Detected (NotDetected); Opiate Screen,Urine Detected (NotDetected); Phencyclidine Screen,Urine Not Detected (NotDetected); Tricyclic Antidepressant,Urine Not Detected (NotDetected); Urn Cannabinoid Scrn Not Detected (NotDetected)
[2024-04-11 16:47] LABS: Barbiturate Screen,Urine Not Detected (NotDetected); Oxycodone Screen, Urine Not Detected (NotDetected)
[2024-04-12 02:18] VITALS: BP 111/73; PULSE 69; TEMP 98
[2024-04-12] MEDS ORDERED: levETIRAcetam 500 MG TAB ONE ×3 (08:26→20:44)
[2024-04-12] MEDS ORDERED: SODIUM CHLORIDE 0.9% 1,000 ML BAG ONE (08:40)
[2024-04-12] MEDS ORDERED: NON FORMULARY DRUG (Dextroamphetamine/Amphetamine [Adderall] 30 MG Tablet) PO SCH (09:00)
[2024-04-12] MEDS ORDERED: METHADONE 10 MG TAB ONE ×2 (16:05)
[2024-04-14] MEDS ORDERED: levETIRAcetam 500 MG TAB ONE (09:17)
[2024-04-14] MEDS ORDERED: PANTOPRAZOLE 40 MG/10 ML VIAL ONE (09:17)
[2024-04-14] MEDS ORDERED: HEPARIN SODIUM,PORCINE 5,000 UNIT/ML 1 ML VIAL ONE (09:17)
[2024-04-14] MEDS ORDERED: FAMOTIDINE 20 MG TAB ONE ×2 (09:17)
[2024-04-14] MEDS ORDERED: FLUoxetine HCL 20 MG CAP ONE (09:18)
[2024-04-14] MEDS ORDERED: LORazepam 2 MG/ML INJ ONE (09:19)
== END 2024-04-12 20:53 | disposition home or self-care (01) ==
LOC: EC 17:44 → 4SSUR 23:41
PROVIDERS: ADMIT Internal Medicine; ATTEND Internal Medicine
DX: G40.909 Epilepsy, unspecified, not intractable, without status epilepticus (principal); B18.2 Chronic viral hepatitis C; R07.9 Chest pain, unspecified; R10.32 Left lower quadrant pain; R11.2 Nausea with vomiting, unspecified; T45.516A Underdosing of anticoagulants, initial encounter; Z91.138 Patient's unintentional underdosing of medication regimen for other reason; Z91.148 Patient's other noncompliance with medication regimen for other reason; F11.21 Opioid dependence, in remission; E66.9 Obesity, unspecified; Z68.39 Body mass index [BMI] 39.0-39.9, adult; Z79.01 Long term (current) use of anticoagulants; Z79.899 Other long term (current) drug therapy; Z88.6 Allergy status to analgesic agent; Z86.19 Personal history of other infectious and parasitic diseases; Z86.718 Personal history of other venous thrombosis and embolism
CPT/HCPCS: 36415; 93005; 80053; 83605; 83735; 84484 ×2; 85025; 85610; 85730; 81001; 81025; 84703; 80306; 87086; 70450; 71275; 74177; J2060; J2270; J2405; J1170; J1953; J1885; Q9967; J2470; 96361; 96374; 96375; 99285

== ENCOUNTER 2024-09-16 21:14 | Emergency (ER) | payer OTHER ==
--- NOTE | 2024-09-16 21:47 | ED ---
General Adult HPI - General Stated complaint: Seizures Time Seen by Provider: 09/16/24 21:15 Source: patient, RN notes reviewed, old records reviewed Mode of arrival: EMS Limitations: no limitations - History of Present Illness Initial comments: Is a 39-year-old female presents emergency department with breakthrough seizure. Has a history of epilepsy and epileptic seizures. Patient is on Keppra but does not know what dose she is on. States she only has enough for 2 more days. Patient seems poorly compliant with all medications as she is also was to be on Xarelto but has not taken in multiple weeks since she ran out of the medication. Was on that for DVTs. Currently has no acute complaints. Patient had approximately 1 to 2-minute seizure at home that is generalized tonic-clonic witnessed by daughter. Patient was postictal afterwards. Patient did bite down and caused some bleeding of her gums as she is missing her upper teeth however bleeding is controlled at this time. She endorses a mild headache but otherwise has no acute complaints is ANO x 4 at this time. States she last took her medications yesterday the day before. She is on Keppra but unknown dose. Presents for further evaluation. - Related Data Home Medications Medication Instructions Recorded Confirmed Dextroamphetamine/Amphetamine 30 mg PO BID 04/11/24 04/11/24 [Adderall] Ibuprofen [Motrin] 600 mg PO Q12H PRN 04/11/24 04/11/24 Ketoconazole 2% Cream [Nizoral 2%] 1 applic TOPICAL DAILY PRN 04/11/24 04/11/24 Ketoconazole 2% Shampoo [Nizoral] 1 applic TOPICAL DAILY PRN 04/11/24 04/11/24 Ondansetron Odt [Zofran Odt] 4 mg PO Q8HR PRN 04/11/24 04/11/24 Rivaroxaban [Xarelto] 20 mg PO DAILY 04/11/24 04/11/24 Triamcinolone 0.1% Cream [Kenalog 1 applicatio TOPICAL TID PRN 04/11/24 04/11/24 0.1% Cream] Previous Rx's Medication Instructions Recorded levETIRAcetam [Keppra] 500 mg PO Q12HR 30 Days #60 tab 09/16/24 Allergies Allergy/AdvReac Type Severity Reaction Status Date / Time acetaminophen Allergy Anaphylaxis Verified 04/10/24 17:57 Review of Systems ROS Statement: Those systems with pertinent positive or pertinent negative responses have been documented in the HPI. Review of Systems: CONST: Denies fever EYES: Denies blurry vision ENT: Denies nasal congestion C/V: Denies Chest pain RESP: Denies shortness of breath GI: Denies abdominal pain : Denies dysuria SKIN: Denies rash. MSK: Denies joint pain. NEURO: Endorses mild headache ROS Other: All systems not noted in ROS Statement are negative. Past Medical History Past Medical History: Deep Vein Thrombosis (DVT), Seizure Disorder Additional Past Medical History / Comment(s): Kidney stones, right kidney failure History of Any Multi-Drug Resistant Organisms: None Reported Past Surgical History: Section, Orthopedic Surgery Past Psychological History: No Psychological Hx Reported Smoking Status: Never smoker Past Alcohol Use History: None Reported Past Drug Use History: None Reported General Exam - General Exam Comments Initial Comments: General: Appears in no acute distress. HEAD: Normal with no signs of head trauma. EYES: PERRLA, EOMI, conjunctiva normal, no discharge. Pupils are 3 mm and equal bilaterally. ENT: Hearing grossly intact, normal oropharynx. Patient did bite her upper gum as she has no dentition noted during her seizure. Bleeding is controlled. No obvious significant laceration or injury. RESPIRATORY: Clear breath sounds bilaterally. No wheezes, rales, or rhonchi. C/V: Regular rate and rhythm. S1 and S2 auscultated, no edema, peripheral pulses 2+ and intact throughout ABD: Abd is soft, nontender, nondistended EXT: Normal range of motion, no obvious deformity SKIN: No rashes or lesions observed on exposed skin. NEURO: Alert and oriented x 4. No focal neurological deficits. Limitations: no limitations Course Vital Signs 09/16/24 09/16/24 21:18 23:38 Temperature 97.1 F L 98.4 F Pulse Rate 93 94 Respiratory 19 18 Rate Blood Pressure 136/77 126/68 O2 Sat by Pulse 96 94 L Oximetry Medical Decision Making - Medical Decision Making Was pt. sent in by a medical professional or institution (, PA, IMAGING ENGINEER, urgent care, hospital, or assisted...) When possible be specific @ -No Did you speak to anyone other than the patient for history (EMS, parent, family, police, friend...)? What history was obtained from this source @ -No Did you review nursing and triage notes (agree or disagree)? Why? @ -I reviewed and agree with nursing and triage notes Were old charts reviewed (outside hosp., previous admission, EMS record, old EKG, old radiological studies, urgent care reports/EKG's, assisted records)? Report findings @ -Charts reviewed showing patient was supposed be on Xarelto however patient states she is not compliant with it and has not taken it in weeks. Also show she has been admitted here before for seizures. Last admission was in April 2024. Differential Diagnosis (chest pain, altered mental status, abdominal pain women, abdominal pain men, vaginal bleeding, weakness, fever, dyspnea, syncope, headache, dizziness, GI bleed, back pain, seizure, CVA, palpatations, mental health, musculoskeletal)? @ -Differential Seizure: Recurrent seizure disorder, febrile seizure, alcohol withdrawal, stimulants, meningitis, encephalitis, intercranial hemorrhage, intracranial tumor, stroke, eclampsia, thyrotoxicosis, hypocalcemia, hyponatremia, hypernatremia, hypomagnesemia, psychogenic, this is not meant to be an all-inclusive list. EKG interpreted by me (3pts min.). @ -As above X-rays interpreted by me (1pt min.). @ -None done CT interpreted by me (1pt min.). @ -None done U/S interpreted by me (1pt. min.). @ -None done What testing was considered but not performed or refused? (CT, X-rays, U/S, labs)? Why? @ -None What meds were considered but not given or refused? Why? @ -None Did you discuss the management of the patient with other professionals (professionals i.e. , PA, IMAGING ENGINEER, lab, RT, psych nurse, social media developer, mines inspector, teacher, development officer, case management coordinator)? Give summary @ -No Was smoking cessation discussed for >3mins.? @ -No Was critical care preformed (if so, how long)? @ -No Were there social determinants of health that impacted care today? How? (Homelessness, low income, unemployed, alcoholism, drug addiction, tra nsportation, low edu. Level, literacy, decrease access to med. care, fpc, rehab)? @ -No Was there de-escalation of care discussed even if they declined (Discuss DNR or withdrawal of care, Hospice)? DNR status @ -No What co-morbidities impacted this encounter? (DM, HTN, Smoking, COPD, CAD, Cancer, CVA, ARF, Chemo, Hep., AIDS, mental health diagnosis, sleep apnea, morbid obesity)? @ -Epilepsy with medication noncompliance Was patient admitted / discharged? Hospital course, mention meds given and route, prescriptions, significant lab abnormalities, going to OR and other pertinent info. @ -Patient presents emergency department with a breakthrough seizure likely secondary to medication noncompliance. Vitals are within acceptable limits. Was postictal but is improved at this time. Discussed. Keppra. Patient will be administered 1500 mg of Keppra, as well as a dose of Toradol for mild headache as well as IV fluids. Will obtain basic labs. EKG will also be obtained. Patient was in agreement this plan. EKG shows no signs of acute ischemia.Patient's laboratory studies returned un remarkable. Keppra level sent but did not return. Patient was observed for multiple hours here in the department. No breakthrough seizures. She will be discharged home with a prescription for her Keppra. She was in agreement this plan. We did discuss at length the importance of taking her Keppra as prescribed and not missing doses as this likely contributed to her seizure. Recommended close follow-up with her PCP as she is also noncompliant with other medications. She was in agreement this plan. Discussed at length she cannot operate motor vehicles or heavy machinery for 6 months after seizure. I will provide the patient with a prescription for Keppra. I instructed the patient to follow up with their PCP in the next 1-3 days.. I explained that the patient should return to the emergency department if they experience any worsening symptoms. Strict return precautions were discussed with the patient. The patient expressed understanding of these instructions. I answered all quest ions that the patient had. The patient was discharged home in good condition with their prescriptions and follow up information. Undiagnosed new problem with uncertain prognosis? @ -No Drug Therapy requiring intensive monitoring for toxicity (Heparin, Nitro, Insulin, Cardizem)? @ -No Were any procedures done? @ -No Diagnosis/symptom? @ -Breakthrough seizure, Medication noncompliance Acute, or Chronic, or Acute on Chronic? @ -Acute on chronic Uncomplicated (without systemic symptoms) or Complicated (systemic symptoms)? @ -Uncomplicated Side effects of treatment? @ -No Exacerbation, Progression, or Severe Exacerbation? @ -No Poses a threat to life or bodily function? How? (Chest pain, [place], [place], pneumonia, PE, COPD, DKA, ARF, appy, cholecystitis, CVA, Diverticulitis, Homicidal, Suicidal, threat to staff... and all critical care pts) @ -Unlikely at this time - Lab Data Result diagrams: 09/16/24 21:30 09/16/24 21:30 Lab Results 09/16/24 09/16/24 09/16/24 Range/Units 21:30 21:: WBC 9.0 (3.8-10.6) k/uL RBC 3.93 (3.80-5.40) m/uL Hgb 11.8 (11.4-16.0) gm/dL Hct 34.7 (34.0-46.0) % MCV 88.3 (80.0-100.0) fL MCH 30.0 (25.0-35.0) pg MCHC 33.9 (31.0-37.0) g/dL RDW 13.0 (11.5-15.5) % Plt Count 233 (150-450) k/uL MPV 7.5 Neutrophils % 72 % Lymphocytes % 16 % Monocytes % 6 % Eosinophils % 4 % Basophils % 0 % Neutrophils # 6.5 (1.3-7.7) k/uL Lymphocytes # 1.5 (1.0-4.8) k/uL Monocytes # 0.5 (0-1.0) k/uL Eosinophils # 0.4 (0-0.7) k/uL Basophils # 0.0 (0-0.2) k/uL Sodium 138 (137-145) mmol/L Potassium 3.8 (3.5-5.1) mmol/L Chloride 108 H (98-107) mmol/L Carbon Dioxide 20 L (22-30) mmol/L Anion Gap 10 mmol/L BUN 14 (7-17) mg/dL Creatinine 0.70 (0.52-1.04) mg/dL Est GFR (CKD-EPI)AfAm >90 (>60 ml/min/1.73 sqM) Est GFR (CKD-EPI)NonAf >90 (>60 ml/min/1.73 sqM) Glucose 113 H (74-99) mg/dL Calcium 8.6 (8.4-10.2) mg/dL Magnesium 1.9 (1.6-2.3) mg/dL Total Bilirubin 0.4 (0.2-1.3) mg/dL AST 26 (14-36) U/L ALT 21 (4-34) U/L Alkaline Phosphatase 85 (38-126) U/L Total Protein 6.8 (6.3-8.2) g/dL Albumin 3.9 (3.5-5.0) g/dL HCG, Qual Not Detected Urine Color Light Yellow Urine Appearance Clear (Clear) Urine pH 5.5 (5.0-8.0) Ur Specific [place] 1.019 (1.001-1.035) Urine Protein Negative (Negative) Urine Glucose (UA) Negative (Negative) Urine Ketones Trace H (Negative) Urine Blood Negative (Negative) Urine Nitrite Negative (Negative) Urine Bilirubin Negative (Negative) Urine Urobilinogen <2.0 (<2.0) mg/dL Ur Leukocyte Esterase Small H (Negative) Urine RBC 3 (0-5) /hpf Urine WBC 5 (0-5) /hpf Ur Squamous Epith Cells 6 H (0-4) /hpf Urine Mucus Occasional H (None) /hpf Serum Alcohol <10 mg/dL - EKG Data -: EKG Interpreted by Me EKG Comments: 12-lead Electrocardiogram Interpretation Note EKG was reviewed and interpreted by myself. 12-lead ECG performed at 2121 is interpreted by me as revealing normal sinus rhythm at a rate of 95 beats per minute. [place] is normal. SC interval is 160 ms, QRS durations 88 ms, QTc is 332 ms.. There were no ST or T wave abnormalities to suggest myocardial ischemia or injury. R wave progression across the precordium was satisfactory. By my interpretation this EKG is non-diagnostic for acute ischemia. Disposition Clinical Impression: Breakthrough seizure, Nonadherence to medication Disposition: HOME SELF-CARE Condition: Good Instructions (If sedation given, give patient instructions): Seizure/Epilepsy Discharge Instructions & Follow-Up Additional Instructions: No operating motor vehicles or heavy machinery for at least 6 months per [place] law. Please take your antiepileptic medications. Follow-up with neuro logist. Follow-up with PCP in the next 1 to 3 days. Return to the emergency department if any worsening symptoms. Prescriptions: levETIRAcetam [Keppra] 500 mg PO Q12HR 30 Days #60 tab Is patient prescribed a controlled substance at d/c from ED?: No Referrals: Nida Garza NPC [Family Provider] - 1-2 days Time of Disposition: 23:30
[2024-09-16 21:51] LABS: Basophils % (A) 0 %; Eosinophils # (A) 0.4 k/uL (0-0.7); Eosinophils % (A) 4 %; HCT 34.7 % (34.0-46.0); HGB 11.8 gm/dL (11.4-16.0); Lymphocytes # (A) 1.5 k/uL (1.0-4.8); Lymphocytes % (A) 16 %; MCHC 33.9 g/dL (31.0-37.0); MCV 88.3 fL (80.0-100.0); Mean Platelet Volume 7.5; Monocytes # (A) 0.5 k/uL (0-1.0); Monocytes % (A) 6 %; Neutrophils # (A) 6.5 k/uL (1.3-7.7); Neutrophils % (A) 72 %; Platelet Count 233 k/uL (150-450); RBC 3.93 m/uL (3.80-5.40)
[2024-09-16 21:59] LABS: Appearance,Urine Clear (Clear); Bilirubin,Urine Negative (Negative); Blood,Urine Negative (Negative); Color,Urine Light Yellow; Glucose,Urine (UA) Negative (Negative); Ketones,Urine Trace (Negative); Leukocyte Esterase,Urine Small (Negative); Mucus,Urine Occasional /hpf; Nitrite,Urine Negative (Negative); PH, Urine 5.5 (5.0-8.0); Protein,Urine Negative (Negative); RBC,Urine 3 /hpf (0-5); Specific Gravity,Urine 1.019 (1.001-1.035); Squamous Epithelial Cell,Urine 6 /hpf (0-4); Urobilinogen,Urine <2.0 mg/dL (<2.0); WBC,Urine 5 /hpf (0-5)
[2024-09-16] MEDS: levETIRAcetam IV 500 MG/5 ML VIAL IVP STA (22:07)
[2024-09-16 22:09] LABS: ALT 21 U/L (4-34); African American GFR (CKD) >90 (>60 ml/min/1.73 sqM); Albumin 3.9 g/dL (3.5-5.0); Alcohol <10 mg/dL; Anion Gap 10 mmol/L; Blood Urea Nitrogen 14 mg/dL (7-17); Calcium 8.6 mg/dL (8.4-10.2); Carbon Dioxide 20 mmol/L (22-30); Chloride 108 mmol/L (98-107); Glucose 113 mg/dL (74-99); Non-African American GFR(CKD) >90 (>60 ml/min/1.73 sqM); Sodium 138 mmol/L (137-145); Total Bilirubin 0.4 mg/dL (0.2-1.3); Total Protein 6.8 g/dL (6.3-8.2)
[2024-09-16] MEDS: KETOROLAC 15 MG/ML 1 ML VIAL IVP STA (22:10)
[2024-09-16 22:13] LABS: AST 26 U/L (14-36); Magnesium 1.9 mg/dL (1.6-2.3); Potassium 3.8 mmol/L (3.5-5.1)
[2024-09-16 22:14] LABS: Alkaline Phosphatase 85 U/L (38-126)
[2024-09-16] MEDS: SODIUM CHLORIDE 0.9% 1,000 ML IV STA (22:14)
[2024-09-16 22:28] LABS: HCG,Qualitative Serum Not Detected
[2024-09-16 23:39] VITALS: BP 126/68; PULSE 94; RESP 18; TEMP 98.4
[2024-09-17] MEDS: IBUPROFEN 800 MG TAB PO STA (00:02)
== END 2024-09-17 00:10 | disposition home or self-care (01) ==
LOC: EC 21:14
DX: G40.909 Epilepsy, unspecified, not intractable, without status epilepticus (principal); Z91.148 Patient's other noncompliance with medication regimen for other reason; Z88.6 Allergy status to analgesic agent
CPT/HCPCS: 36415; 93005; 80053; 80177; 83735; 85025; 81001; 84703; 99285; 96374; 96375; 96361; G0480; J1953; J1885; 80320

== ENCOUNTER 2025-01-21 11:31 | Emergency (ER) | payer OTHER ==
[2025-01-21 11:36] VITALS: TEMP 98.4
--- NOTE | 2025-01-21 11:59 | ED ---
General Adult HPI - General Chief complaint: Shortness of Breath Stated complaint: sob,dizzy,lightheaded Time Seen by Provider: 01/21/25 11:37 Source: patient, RN notes reviewed Mode of arrival: ambulatory Limitations: no limitations - History of Present Illness Initial comments: 39-year-old female history of DVT on Xarelto presenting to the emergency de partment with chest pain, difficulty in breathing over the past 3 days. Patient states that she has also been experiencing a dry cough, rhinorrhea, fevers and chills. Patient was instructed to hold her Xarelto for a procedure that was scheduled for today so she has not taken this medication since Friday. She denies history of heart attack or stroke. She states that she also been experiencing pain and a fullness to her left ear with muffled hearing. - Related Data Home Medications Medication Instructions Recorded Confirmed Dextroamphetamine/Amphetamine 30 mg PO BID 04/11/24 04/11/24 [Adderall] Ibuprofen [Motrin] 600 mg PO Q12H PRN 04/11/24 04/11/24 Ketoconazole 2% Cream [Nizoral 2%] 1 applic TOPICAL DAILY PRN 04/11/24 04/11/24 Ketoconazole 2% Shampoo [Nizoral] 1 applic TOPICAL DAILY PRN 04/11/24 04/11/24 Ondansetron Odt [Zofran Odt] 4 mg PO Q8HR PRN 04/11/24 04/11/24 Rivaroxaban [Xarelto] 20 mg PO DAILY 04/11/24 04/11/24 Triamcinolone 0.1% Cream [Kenalog 1 applicatio TOPICAL TID PRN 04/11/24 04/11/24 0.1% Cream] Previous Rx's Medication Instructions Recorded levETIRAcetam [Keppra] 500 mg PO Q12HR 30 Days #60 tab 09/16/24 Allergies Allergy/AdvReac Type Severity Reaction Status Date / Time acetaminophen Allergy Anaphylaxis Verified 01/21/25 11:37 Review of Systems ROS Statement: Those systems with pertinent positive or pertinent negative responses have been documented in the HPI. ROS Other: All systems not noted in ROS Statement are negative. Past Medical History Past Medical History: Deep Vein Thrombosis (DVT), Seizure Disorder Additional Past Medical History / Comment(s): Kidney stones, right kidney failure History of Any Multi-Drug Resistant Organisms: None Reported Past Surgical History: Section, Orthopedic Surgery Past Psychological History: No Psychological Hx Reported Smoking Status: Never smoker Past Alcohol Use History: None Reported Past Drug Use History: None Reported General Exam Limitations: no limitations General appearance: alert, in no apparent distress Eye exam: Present: normal appearance, PERRL, EOMI. Absent: scleral icterus, conjunctival injection, periorbital swelling Expanded TM/Canal exam: Erythema: Left TM (canal), Canal Tenderness: Left TM Neck exam: Present: normal inspection. Absent: tenderness, meningismus, lymphadenopathy Respiratory exam: Present: normal lung sounds bilaterally. Absent: respiratory distress, wheezes, rales, rhonchi, stridor Cardiovascular Exam: Present: regular rate, normal rhythm, normal heart sounds. Absent: systolic murmur, diastolic murmur, rubs, gallop, clicks GI/Abdominal exam: Present: soft, normal bowel sounds. Absent: distended, tenderness, guarding, rebound, rigid Skin exam: Present: warm, dry, intact, normal color. Absent: rash Course Vital Signs 01/21/25 01/21/25 11:34 14:30 Temperature 98.4 F 98.4 F Pulse Rate 87 82 Respiratory 17 18 Rate Blood Pressure 138/78 128/72 O2 Sat by Pulse 98 99 Oximetry Medical Decision Making - Medical Decision Making Was pt. sent in by a medical professional or institution (, PA, PLANS EXAMINER, urgent care, hospital, or senior care...) When possible be specific @ -No Did you speak to anyone other than the patient for history (EMS, parent, family, police, friend...)? What history was obtained from this source @ -No Did you review nursing and triage notes (agree or disagree)? Why? @ -I reviewed and agree with nursing and triage notes Were old charts reviewed (outside hosp., previous admission, EMS record, old EKG, old radiological studies, urgent care reports/EKG's, senior care records)? Report findings @ -No old charts were reviewed Differential Diagnosis (chest pain, altered mental status, abdominal pain women, abdominal pain men, vaginal bleeding, weakness, fever, dyspnea, syncope, headache, dizziness, GI bleed, back pain, seizure, CVA, palpatations, mental health, musculoskeletal)? @ -Differential Dyspnea: Coronary syndrome, arrhythmia, tamponade, asthma, COPD, pulmonary embolism, pneumonia, pneumothorax, pulmonary effusion, anaphylaxis, diabetic ketoacidosis, flailed chest, pulmonary contusion, diaphragmatic rupture, anemia, neuromuscular, this is not meant to be an all-inclusive list. EKG interpreted by me (3pts min.). @ -Completed at 1306 sinus rhythm with a ventricular to 71, MS interval 164, QRS 90, QT 305, QTc 328. X-rays interpreted by me (1pt min.). @ -Chest x-ray no acute cardiopulmonary process or disease CT interpreted by me (1pt min.). @ -None done U/S interpreted by me (1pt. min.). @ -None done What testing was considered but not performed or refused? (CT, X-rays, U/S, labs)? Why? @ -None What meds were considered but not given or refused? Why? @ -None Did you discuss the management of the patient with other professionals (professionals i.e. , PA, PLANS EXAMINER, lab, RT, psych nurse, manager social, candy bar attendant, teacher, senior grants officer, case packer and sealer)? Give summary @ -No Was smoking cessation discussed for >3mins.? @ -No Was critical care preformed (if so, how long)? @ -No Were there social determinants of health that impacted care today? How? (Homelessness, low income, unemployed, alcoholism, drug addiction, transportation, low edu. Level, literacy, decrease access to med. care, shelter, rehab)? @ -No Was there de-escalation of care discussed even if they declined (Discuss DNR or withdrawal of care, Hospice)? DNR status @ -No What co-morbidities impacted this encounter? (DM, HTN, Smoking, COPD, CAD, Cancer, CVA, ARF, Chemo, Hep., AIDS, mental health diagnosis, sleep apnea, morbid obesity)? @ -None Was patient admitted / discharged? Hospital course, mention meds given and route, prescriptions, significant lab abnormalities, going to OR and other pertinent info. @ -Discharge. 39-year-old female sent emergency department with chest pain, difficulty breathing, left ear pain. Patient initial vitals are stable. EKG is in sinus rhythm. Exam reveals dry eczematous skin of the left ear canal with the left ear canal appearing erythematous and edematous with mild discharge consistent with a otitis externa. Patient provided with Ciprodex drops and will be evaluated for shortness of breath with laboratory testing and chest x-ray. Patient has mild leukocytosis of 13 likely secondary to viral infection. CMP is unremarkable. Troponin is nonelevated, D-dimer is nonelevated. Viral testing is negative. Chest x-ray no acute process. Patient's cough and shortness of breath likely secondary to viral syndrome at this time. Recommend that she follow-up with primary care provider and return parameters have been discussed. Case discussed with Dr. Gorman Undiagnosed new problem with uncertain prognosis? @ -No Drug Therapy requiring intensive monitoring for toxicity (Heparin, Nitro, Insulin, Cardizem)? @ -No Were any procedures done? @ -No Diagnosis/symptom? @ -Otitis externa, viral syndrome Acute, or Chronic, or Acute on Chronic? @ -Acute Uncomplicated (without systemic symptoms) or Complicated (systemic symptoms)? @ -Uncomplicated Side effects of treatment? @ -No Exacerbation, Progression, or Severe Exacerbation? @ -No Poses a threat to life or bodily function? How? (Chest pain, USA, CT, pneumonia, PE, COPD, DKA, ARF, appy, cholecystitis, CVA, Diverticulitis, Homicidal, Suicidal, threat to staff... and all critical care pts) @ -No - Lab Data Result diagrams: 01/21/25 12:48 01/21/25 12:48 Lab Results 01/21/25 01/21/25 01/21/25 Range/Units 12:48 12:48 12:48 WBC 13.34 H (4.50-10.00) 10*3/uL RBC 4.09 L (4.10-5.20) 10*6/uL Hgb 12.0 (12.0-15.0) g/dL Hct 36.2 L (37.2-46.3) % MCV 88.5 (80.0-97.0) fL MCH 29.3 (27.0-32.0) pg MCHC 33.1 (32.0-37.0) g/dL Plt Count 233 (140-440) 10*3/uL MPV 9.9 (9.5-12.2) fL Immature Gran % (Auto) 0.4 % Neutrophils % 78.0 % Lymphocytes % 11.3 % Monocytes % 8.0 % Eosinophils % 1.9 % Basophils % 0.4 % Immature Gran # 0.06 H (0.00-0.04) 10*3/uL Neutrophils # 10.39 H (1.80-7.70) 10*3/uL Lymphocytes # 1.51 (0.90-5.00) 10*3/uL Monocytes # 1.07 H (0.20-1.00) 10*3/uL Eosinophils # 0.26 (0.04-0.35) 10*3/uL Basophils # 0.05 (0.00-0.10) 10*3/uL D-Dimer (<0.60) mg/L FEU Sodium 135 L (137-145) mmol/L Potassium 4.5 (3.5-5.1) mmol/L Chloride 101 (98-107) mmol/L Carbon Dioxide 27 (22-30) mmol/L Anion Gap 7 mmol/L BUN 15 (7-17) mg/dL Creatinine 0.78 (0.52-1.04) mg/dL Est GFR (CKD-EPI)AfAm >90 (>60 ml/min/1.73 sqM) Est GFR (CKD-EPI)NonAf >90 (>60 ml/min/1.73 sqM) Glucose 103 H (74-99) mg/dL Calcium 8.9 (8.4-10.2) mg/dL Magnesium 1.9 (1.6-2.3) mg/dL Total Bilirubin 0.8 (0.2-1.3) mg/dL AST 30 (14-36) U/L ALT 26 (4-34) U/L Alkaline Phosphatase 84 (38-126) U/L Troponin I (0.000-0.034) ng/mL Total Protein 7.3 (6.3-8.2) g/dL Albumin 3.9 (3.5-5.0) g/dL Influenza Type A (PCR) Not Detected (Not Detectd) Influenza Type B (PCR) Not Detected (Not Detectd) RSV (PCR) Not Detected (Not Detectd) SARS-CoV-2 (PCR) Not Detected (Not Detectd) 01/21/25 01/21/25 Range/Units 12:48 12:48 WBC (4.50-10.00) 10*3/uL RBC (4.10-5.20) 10*6/uL Hgb (12.0-15.0) g/dL Hct (37.2-46.3) % MCV (80.0-97.0) fL MCH (27.0-32.0) pg MCHC (32.0-37.0) g/dL Plt Count (140-440) 10*3/uL MPV (9.5-12.2) fL Immature Gran % (Auto) % Neutrophils % % Lymphocytes % % Monocytes % % Eosinophils % % Basophils % % Immature Gran # (0.00-0.04) 10*3/uL Neutrophils # (1.80-7.70) 10*3/uL Lymphocytes # (0.90-5.00) 10*3/uL Monocytes # (0.20-1.00) 10*3/uL Eosinophils # (0.04-0.35) 10*3/uL Basophils # (0.00-0.10) 10*3/uL D-Dimer 0.47 (<0.60) mg/L FEU Sodium (137-145) mmol/L Potassium (3.5-5.1) mmol/L Chloride (98-107) mmol/L Carbon Dioxide (22-30) mmol/L Anion Gap mmol/L BUN (7-17) mg/dL Creatinine (0.52-1.04) mg/dL Est GFR (CKD-EPI)AfAm (>60 ml/min/1.73 sqM) Est GFR (CKD-EPI)NonAf (>60 ml/min/1.73 sqM) Glucose (74-99) mg/dL Calcium (8.4-10.2) mg/dL Magnesium (1.6-2.3) mg/dL Total Bilirubin (0.2-1.3) mg/dL AST (14-36) U/L ALT (4-34) U/L Alkaline Phosphatase (38-126) U/L Troponin I <0.012 (0.000-0.034) ng/mL Total Protein (6.3-8.2) g/dL Albumin (3.5-5.0) g/dL Influenza Type A (PCR) (Not Detectd) Influenza Type B (PCR) (Not Detectd) RSV (PCR) (Not Detectd) SARS-CoV-2 (PCR) (Not Detectd) Disposition Clinical Impression: Viral syndrome Disposition: HOME SELF-CARE Condition: Stable Instructions (If sedation given, give patient instructions): Viral Syndrome (ED) Additional Instructions: Please return to the Emergency Department if symptoms worsen or any other concerns. Is patient prescribed a controlled substance at d/c from ED?: No Referrals: Nida Garza NPC [REFERRING] - 1-2 days Time of Disposition: 14:12
[2025-01-21 13:14] LABS: Basophils # (A) 0.05 10*3/uL (0.00-0.10); Basophils % (A) 0.4 %; Eosinophils # (A) 0.26 10*3/uL (0.04-0.35); Eosinophils % (A) 1.9 %; HCT 36.2 % (37.2-46.3); Lymphocytes # (A) 1.51 10*3/uL (0.90-5.00); Lymphocytes % (A) 11.3 %; MCH 29.3 pg (27.0-32.0); MCHC 33.1 g/dL (32.0-37.0); MCV 88.5 fL (80.0-97.0); Mean Platelet Volume 9.9 fL (9.5-12.2); Monocytes # (A) 1.07 10*3/uL (0.20-1.00); Neutrophils # (A) 10.39 10*3/uL (1.80-7.70); Platelet Count 233 10*3/uL (140-440); RBC 4.09 10*6/uL (4.10-5.20); RDW 12.8 % (11.5-14.5); WBC 13.34 10*3/uL (4.50-10.00)
[2025-01-21 13:24] LABS: ALT 26 U/L (4-34); African American GFR (CKD) >90 (>60 ml/min/1.73 sqM); Anion Gap 7 mmol/L; Blood Urea Nitrogen 15 mg/dL (7-17); Calcium 8.9 mg/dL (8.4-10.2); Carbon Dioxide 27 mmol/L (22-30); Chloride 101 mmol/L (98-107); Glucose 103 mg/dL (74-99); Non-African American GFR(CKD) >90 (>60 ml/min/1.73 sqM); Sodium 135 mmol/L (137-145); Total Bilirubin 0.8 mg/dL (0.2-1.3)
[2025-01-21 13:29] LABS: Albumin 3.9 g/dL (3.5-5.0); Total Protein 7.3 g/dL (6.3-8.2)
[2025-01-21 13:30] LABS: AST 30 U/L (14-36); Alkaline Phosphatase 84 U/L (38-126); Magnesium 1.9 mg/dL (1.6-2.3); Potassium 4.5 mmol/L (3.5-5.1)
--- NOTE | 2025-01-21 13:35 | XR ---
EXAMINATION TYPE: XR chest 2V DATE OF EXAM: 01/21/2025 1:24 PM COMPARISON: Chest radiographs from 02/26/2018. CLINICAL INDICATION: Female, 39 years old with history of CATAR[place], cough; [facility] TECHNIQUE: XR chest 2V Frontal and lateral views of the chest. FINDINGS: Lungs/Pleura: There is no evidence of pleural effusion, focal consolidation, or pneumothorax. Pulmonary vascularity: Unremarkable. Heart/mediastinum: Cardiomediastinal silhouette is unremarkable. Musculoskeletal: No acute osseous pathology. Other findings: None IMPRESSION: No acute cardiopulmonary disease/process. [facility], , 01/21/2025 1:32 PM
[2025-01-21 13:50] LABS: Influenza A Not Detected (Not Detectd); Influenza B Not Detected (Not Detectd); RSV Not Detected (Not Detectd)
[2025-01-21] MEDS: CIPROFLOXACIN-DEXAMETH 0.3-0.1% DROPS 7.5 ML BTL LEFT EAR STA (14:26)
[2025-01-21 14:31] VITALS: BP 128/72; PULSE 82; RESP 18
== END 2025-01-21 14:31 | disposition home or self-care (01) ==
LOC: EC 11:31
DX: H60.92 Unspecified otitis externa, left ear (principal); B34.9 Viral infection, unspecified; Z79.01 Long term (current) use of anticoagulants; Z88.6 Allergy status to analgesic agent
CPT/HCPCS: 36415; 71046; 80053; 83735; 84484; 85025; 85379; 87636; 93005; 99285